=== PATIENT | male | born 1945 | race Caucasian/White ===

== ENCOUNTER 2019-08-28 05:36 | Outpatient (CLI) | payer MEDICARE ==
[~2019-08-28] VITALS: Ht 180 cm; Wt 79.5 kg
== END 2019-08-28 12:15 | disposition home or self-care (01) ==
LOC: PREOP 05:36
PROVIDERS: ATTEND Internal Medicine
DX: Z01.818 Encounter for other preprocedural examination (principal)

== ENCOUNTER 2019-08-29 07:51 | Inpatient (IN) | payer MEDICARE ==
[2019-08-29] VITALS (21 sets, daily range): BP systolic 110–144; BP diastolic 56–87
[~2019-08-29] VITALS: Ht 180 cm; Wt 79.5 kg
--- NOTE | 2019-08-29 06:13 | HISTORY AND PHYSICAL ---
DATE OF SERVICE: 08/29/2019 COLONOSCOPY HISTORY AND PHYSICAL HISTORY OF PRESENT ILLNESS: The patient is a 74-year-old white male who came in to the office on 08/27/2019 voicing complaints of fatigue over the past month with bowel habit change. He has had intermittent mucus without blood and loose stools. He has had no antibiotic exposure. He had been taking some Prilosec secondary to some intermittent heartburn symptoms, but has had no melena. Denies dysphagia. He has had some lower intestinal intermittent mild cramping. No epigastric right or left upper quadrant symptoms. He does have a distant past history of cholecystectomy. I had tried to talk him into a screening colonoscopy last year, but he did not follow through examination was encouraged. He is not aware of any family history for GI tract malignancy. PHYSICAL EXAMINATION: GENERAL: Reveals a white male, anxious, but did not appear to be in acute distress. VITAL SIGNS: Weight was down 2.6 pounds from 2 months ago. Blood pressure 106/72. CHEST: Clear to auscultation. CARDIOVASCULAR: Revealed a regular rate and rhythm without murmur, S3 or S4. ABDOMEN: Soft, supple without mass, organomegaly or tenderness. No bruits were noted. Bowel sounds are unremarkable. ASSESSMENT AND PLAN: After discussion, the patient was now ready to consent to his first screening colonoscopy. Suspect that symptoms may be proton pump inhibitor related, but cannot rule out more significant causes. Prep instructions with the Suprep kit were given and questions were answered. A flu shot was administered as well. The patient was set up for 08/29/2019. Job ID: [id number] DocumentID: [id number] Dictated Date: 08/27/2019 17:29:55 Loan Representative Date: 08/27/2019 17:42:39 Dictated By: LEAH MURPHY MD
--- NOTE | 2019-08-29 08:09 | Pre-Op Note & Conscious Sedat ---
Pre-Operative Progress Note H&P Reviewed The H&P was reviewed, patient examined and no changes noted. Date H&P Reviewed: Aug 29, 2019 Time H&P Reviewed: 08:09 Conscious Sedation Pre-Proced ASA Score 2 For ASA 3 and 4: Consider anesthesia and medical clearance. Also, for patients with a history of failed moderate sedation consider anesthesia. Airway Lungs Heart ASA score ASA 1: a normal healthy patient ASA 2: a patient with a mild systemic disease (mid diabetes, controlled hypertension, obesity ASA 3: a patient with a severe systemic disease that limits activity (angina, COPD, prior Myocardial infarction) ASA 4: a patient with an incapacitating disease that is a constant threat to life (CHF, renal failure) ASA 5: a moribund patient not expected to survive 24 hrs. (ruptured aneurysm) ASA 6: a declared brain- patient whose organs are being harvested. For emergent operations, add the letter E after the classification Mallampati Classification Grade 2 Sedation Plan Analgesia, Amnesia, Plan communicated to team members, Discussed options with patient/fam, Discussed risks with patient/fam The patient is an appropriate candidate to undergo the planned procedure, sedation, and anesthesia. The patient immediately re-assessed prior to indication. LEAH MURPHY MD Aug 29, 2019 08:09
[2019-08-29] MEDS ORDERED: D5 LR IV SOLUTION 1,000 ML IV ONE (08:22)
[2019-08-29] MEDS ORDERED: D5 LR IV SOLUTION 1,000 ML IV STA (08:26)
[2019-08-29] MEDS ORDERED: LIDOCAINE JELLY 2% 6 ML SYRINGE MM PRN (08:30)
[2019-08-29] MEDS ORDERED: MIDAZOLAM 5 MG/5 ML (VERSED) VIAL IV PRN (08:30)
[2019-08-29] MEDS ORDERED: fentaNYL INJECTION 100 MCG/2 ML AMP IVP ONE (08:30)
[2019-08-29] MEDS ORDERED: MIDAZOLAM 5 MG/5 ML (VERSED) VIAL ONE (09:46)
[2019-08-29] MEDS ORDERED: LIDOCAINE JELLY 2% 6 ML SYRINGE ONE (09:46)
[2019-08-29] MEDS ORDERED: fentaNYL INJECTION 100 MCG/2 ML AMP ONE ×2 (09:47→13:02)
--- NOTE | 2019-08-29 12:02 | History & Physical-Surgical ---
[facility] 08/29/19 1202: History of Present Illness History of Present Illness Reason for visit/HPI Mass on Colonoscopy Patient presented to Dr. Salmeron's office on 08.27.19 for changes in bowel habits. Patient has always had Constipation, but since April, his constipation had become worse and he began to notice mucus in his stools. He has never had any abdominal pain with these Bowel movements. Nothing makes it worse, but the Bowel prep for the colonoscopy made his constipation better. During a Colonoscopy on 08.29.[address] Salmeron, a near obstructing colon mass was seen to be occluding a major portion of the intestinal lumen. Date of Admission Time Seen by a Provider: 11:50 I consulted on this patient on 08/29/19 11:56 Attending Physician Leonidas Salmeron MD Admitting Physician Leonidas Salmeron MD Consult Allergies and Home Medications Allergies Coded Allergies: No Known Drug Allergies (Unverified , 08/28/19) Home Medications No Active Prescriptions or Reported Meds Past Qrclurt-Reqdnp-Mngbom Hx Patient Social History Alcohol Use: Rarely Uses Number of Drinks Today: 0 Recreational Drug Use: No Smoking Status: Never a Smoker 2nd Hand Smoke Exposure: No Recent Foreign Travel: No Contact w/Someone Who Travel: No Recent Infectious Disease Expo: No Recent Hopitalizations: No Immunizations Up To Date Date of Pneumonia Vaccine: Aug 09, 2015 Date of Influenza Vaccine: Aug 11, 2019 Seasonal Allergies Seasonal Allergies: No Surgeries History of Surgeries: Yes (SPLEENECTOMY) Surgeries: Gallbladder Respiratory History of Respiratory Disorde: No Cardiovascular History of Cardiac Disorders: No Neurological History of Neurological Disord: No Reproductive System Sexually Transmitted Disease: No HIV/AIDS: No Genitourinary History of Genitourinary Disor: No Gastrointestinal History of Gastrointestinal Di: No Musculoskeletal History of Musculoskeletal Dis: No Endocrine History of Endocrine Disorders: No HEENT History of HEENT Disorders: No Loss of Vision: Denies Hearing Impairment: Denies Cancer History of Cancer: No Psychosocial History of Psychiatric Problem: No Integumentary History of Skin or Integumenta: No Blood Transfusions History of Blood Disorders: No Adverse Reaction to a Blood Tr: No (N/A) Review of Systems Constitutional: No chills, No dizziness, No fever, No weight gain, No weight loss EENTM: No blurred vision, No double vision Respiratory: No cough, No short of breath Cardiovascular: No chest pain, No edema Gastrointestinal: No abdominal pain; constipation; No nausea, No vomiting Genitourinary: No hesitancy, No pain Musculoskeletal: No joint swelling, No muscle cramps Skin: No change in color, No pruritus Psychiatric/Neurological: Denies Emotional Problems, Denies Weakness No history of bruising and bleeding Physical Exam Vital Signs Vital Signs - First Documented 08/29/19 08/29/19 08/29/19 07:59 08:25 10:00 Temp 36.7 Pulse 63 Resp 18 B/P (MAP) 134/84 (101) Pulse Ox 97 O2 Delivery Room Air O2 Flow Rate 2 Capillary Refill : Height, Weight, BMI Height: '" Weight: lbs. oz. kg; 24.53 BMI Method: STARR MENDOZA DO 08/29/19 1254: History of Present Illness History of Present Illness Reason for visit/HPI Surgery asked to consult regarding near obstructing colon lesion. Pt seen down in Endoscopy, he had just had colonoscopy performed by Dr. Salmeron. Unfortunately a near obstructing lesion was found about 20cm from anal verge. Dr. Salmeron was able to tattoo the area. Pt had never had a colonoscopy prior to this. Pt denied any other associated signs or symptoms and no modifying factors. Time Seen by a Provider: 11:50 Allergies and Home Medications Allergies Coded Allergies: No Known Drug Allergies (Unverified , 08/28/19) Home Medications No Active Prescriptions or Reported Meds Patient Home Medication List Home Medication List Reviewed: Yes Past Wcyaclz-Faeonl-Urepcx Hx Surgeries History of Surgeries: Yes (Splenectomy) Respiratory History of Respiratory Disorde: No Cardiovascular History of Cardiac Disorders: No Neurological History of Neurological Disord: No Genitourinary History of Genitourinary Disor: No Gastrointestinal History of Gastrointestinal Di: No Musculoskeletal History of Musculoskeletal Dis: No Endocrine History of Endocrine Disorders: No HEENT History of HEENT Disorders: No Loss of Vision: Denies Cancer History of Cancer: No Psychosocial History of Psychiatric Problem: No Integumentary History of Skin or Integumenta: No Family Medical History Significant Family History: Cancer (Father got colon cancer at age 83) Review of Systems Genitourinary: No dysuria, No hematuria No history of abnormal bruising or bleeding Physical Exam General Appearance: No Apparent Distress, WD/WN Eyes: Bilateral Eye PERRL, Bilateral Eye EOMI HEENT: Pharynx Normal; No Scleral Icterus (L), No Scleral Icterus (R) Neck: Full Range of Motion, Normal Inspection, Non Tender, Supple Respiratory: Chest Non Tender, Lungs Clear, Normal Breath Sounds, No Accessory Muscle Use, No Respiratory Distress Cardiovascular: Regular Rate, Rhythm, No Murmur Gastrointestinal: Normal Bowel Sounds, No Organomegaly, No Pulsatile Mass, Non Tender, Soft Rectal: Deferred Back: No CVA Tenderness, No Vertebral Tenderness Extremity: Normal Capillary Refill, Normal Inspection, Normal Range of Motion, Non Tender, No Calf Tenderness, No Pedal Edema Neurologic/Psychiatric: Alert, Oriented x3, No Motor/Sensory Deficits, Normal Mood/Affect, skating rink ice maker II-XII Norm as Tested Skin: Normal Color, Warm/Dry Lymphatic: No Adenopathy (neck, axilla or groin) Assessment/Plan Assessment/Plan Admission Diagonsis Near obstructing Colon Lesion Admission Status: Inpatient Order (span 2 midnights) Reason for Inpatient Admission: Pt will need colon resection and post op course should take 2-3 days. Assessment/Plan Near Obstructing Colon Lesion Pt had a mass seen on colonoscopy and had to use a very small scope to get by. He has been having increasing constipation problems and this is probably why. He is NPO and has done a colon prep for the colonoscopy. Biopsies were obtained, but since he is prepped and will need a colon resection; pt is asking if it can be done today. I spoke with pt, his and Dr. Salmeron and I believe doing the surgery now is probably the best option. We will attempt a Laparscopic Hand assisted Left Colon resection, possible open. Hopefully he will only be in the hospital for 2 or 3 days. Discussed risks and complications; not limited to pain, bleeding, infection, scar, damage to bowel and need for further procedure. All questions answered to pt's and his 's satisfaction. We will schedule the surgery for today. He will need a dose of ABX prior to OR. We will send all tissue to pathology and hopefully have a cleared picture of what is going on. Supervisory-Addendum Brief Verification & Attestation Participated in pt care: history, MDM, physical Personally performed: exam, history, MDM Care discussed with: Medical Student Procedures: n/a Verification and Attestation of Medical Student E/M Service A medical student performed and documented this service in my presence. I reviewed and verified all information documented by the medical student and made modifications to such information, when appropriate. I personally performed the physical exam and medical decision making. Starr Mendoza, Aug 29, 2019,13:02 SARA HORTON Aug 29, 2019 12:02 STARR MENDOZA DO Aug 29, 2019 12:54
[2019-08-29 12:13] LABS: BASOPHILS # (AUTO) 0.1 10^3/uL (0.0-0.1); BASOPHILS % (AUTO) 1 % (0-10); EOSINOPHILS # (AUTO) 0.4 10^3/uL (0.0-0.3); EOSINOPHILS % (AUTO) 6 % (0-10); HEMATOCRIT 42 % (40-54); HEMOGLOBIN 14.1 G/DL (13.3-17.7); LYMPHOCYTES # (AUTO) 2.1 X 10^3 (1.0-4.0); LYMPHOCYTES % (AUTO) 32 % (12-44); MEAN CORPUSCULAR HEMOGLOBIN 29 PG (25-34); MEAN CORPUSCULAR HGB CONC 33 G/DL (32-36); MEAN CORPUSCULAR VOLUME 88 FL (80-99); MEAN PLATELET VOLUME 10.6 FL (7.4-10.4); MONOCYTES # (AUTO) 0.7 X 10^3 (0.0-1.0); MONOCYTES % (AUTO) 10 % (0-12); NEUTROPHILS # (AUTO) 3.4 X 10^3 (1.8-7.8); NEUTROPHILS % (AUTO) 51 % (42-75); PLATELET COUNT 235 10^3/uL (130-400); RED CELL DISTRIBUTION WIDTH 15.2 % (10.0-14.5); WHITE BLOOD COUNT 6.7 10^3/uL (4.3-11.0)
[2019-08-29 12:18] LABS: INR 1.1 (0.8-1.4); PROTHROMBIN TIME PATIENT 14.8 SEC (12.2-14.7)
[2019-08-29 12:28] LABS: ALANINE AMINOTRANSFERASE 18 U/L (0-55); ALBUMIN 4.1 GM/DL (3.2-4.5); ALKALINE PHOSPHATASE 97 U/L (40-136); BILIRUBIN,TOTAL 0.9 MG/DL (0.1-1.0); BUN/CREATININE RATIO 15; CALCIUM 8.7 MG/DL (8.5-10.1); CARBON DIOXIDE 24 MMOL/L (21-32); CHLORIDE 105 MMOL/L (98-107); CREATININE SERUM 0.94 MG/DL (0.60-1.30); GFR ESTIMATED > 60; GLUCOSE 90 MG/DL (70-105); POTASSIUM 4.8 MMOL/L (3.6-5.0); SODIUM 138 MMOL/L (135-145); TOTAL PROTEIN 7.1 GM/DL (6.4-8.2)
[2019-08-29] MEDS ORDERED: IOHEXOL 350 MG/ML 100 ML (OMNIPAQUE 350) VIAL IV ONE (13:00)
[2019-08-29] MEDS ORDERED: CATHETER FLUSH 10 ML SYR IV PRN (13:00)
[2019-08-29] MEDS ORDERED: NS 100 ML (IVPB) BAG IV ONE (13:00)
[2019-08-29] MEDS ORDERED: HOLD METFORMIN - RECEIVED CONTRAST 20 ML VIAL IV SCH (13:00)
[2019-08-29] MEDS ORDERED: proPOfol 200 MG/20 ML (DIPRIVAN) VIAL IV ONE (13:02)
[2019-08-29] MEDS ORDERED: LIDOCAINE PF 2% 5 ML (XYLOCAINE) VIAL ONE (13:02)
[2019-08-29] MEDS ORDERED: ONDANSETRON 4 MG/2 ML (SDV) Z0FRAN ONE ×2 (13:02→16:30)
[2019-08-29] MEDS ORDERED: DEXAMETHASONE 10 MG/ML (DECADRON) 1 ML VIAL ONE (13:02)
[2019-08-29] MEDS ORDERED: SEVOFLURANE (ULTANE) 15 ML INHAL SOLN ONE ×9 (13:02→16:54)
[2019-08-29] MEDS ORDERED: ROCURONIUM 10 MG/ML 5 ML SYRINGE IV ONE ×2 (13:02→15:38)
[2019-08-29] MEDS ORDERED: BUPIVACAINE 0.25% 30 ML (SENSORCAINE) VIAL ONE ×2 (13:08)
[2019-08-29] MEDS ORDERED: LACTATED RINGERS 1,000 ML IV ONE (13:12)
[2019-08-29] MEDS ORDERED: metroNIDAZOLE 500MG/100ML IVPB 100 ML IV ONE (13:15)
[2019-08-29] MEDS ORDERED: ceFAZolin 2 GM IV Premixed 50 ML ONE (13:15)
[2019-08-29] MEDS ORDERED: metroNIDAZOLE 500MG/100ML IVPB 100 ML ONE (13:15)
[2019-08-29] MEDS ORDERED: ceFAZolin 2 GM IV Premixed 50 ML IV ONE (13:15)
[2019-08-29] MEDS: LACTATED RINGERS 1,000 ML IV PRN ×2 (13:25→14:25)
[2019-08-29] MEDS ORDERED: BUP/EPI 0.5% 1:200,000 (SENSORCAINE) 30 ML VIAL ONE (13:25)
--- NOTE | 2019-08-29 13:42 | Diagnostic Imaging Report ---
PROCEDURE: CT of the abdomen with and without contrast and CT of the pelvis with contrast. TECHNIQUE: Precontrast acquisitions were acquired through the abdomen. Multiple contiguous axial images were obtained through the abdomen and pelvis after administration of intravenous contrast. Auto Exposure Controls were utilized during the CT exam to meet ALARA standards for radiation dose reduction. INDICATION: Colon cancer. COMPARISON: No prior studies are available for comparison. FINDINGS: The lung bases are clear. No discrete liver mass is identified. Gallbladder appears to be surgically absent. No biliary ductal dilatation is seen. The pancreas and spleen are unremarkable. No adrenal mass is detected. Kidneys are unremarkable. There is no hydronephrosis. The aorta is non-aneurysmal. There is a slightly prominent lymph node in the central retroperitoneum at the level of the proximal left common iliac artery measuring 12 mm. There are some shotty lymph nodes in the central retroperitoneum. A second lymph node just inferior to this and near the left common iliac measures 16 mm and shows some central low density which may indicate partial necrosis. There appear to be additional smaller mesenteric nodes present. There is marked circumferential wall thickening involving a segment of the sigmoid colon consistent with patient's known sigmoid neoplasm. There is adjacent soft tissue nodularity present, likely representing enlarged lymph nodes. A conglomerate of soft tissue measures approximately 3.9 x 3.3 cm. No inguinal lymphadenopathy is seen. Pelvic sidewalls are unremarkable. Prostate is markedly enlarged. Bladder is unremarkable. There is no free fluid or fluid collection. Appendix is unremarkable. IMPRESSION: 1. Sigmoid mass consistent with the known neoplasm. There are numerous enlarged lymph nodes in the central retroperitoneum as well as in the iliac location and in deep midline of the pelvis concerning for metastatic disease. No bowel obstruction is seen. No liver masses are detected. 2. Prostatomegaly. Dictated by: Dictated on workstation # [id number]
[2019-08-29] MEDS ORDERED: PHENYLEPHRINE 100 MCG/ML 10 ML (ANESTHESIA) SYR ONE (14:14)
[2019-08-29] MEDS ORDERED: HYDROmorphone 2 MG/ML VIAL (DILAUDID) ONE ×2 (14:38→16:30)
[2019-08-29] MEDS ORDERED: GLYCOPYRROLATE 0.2 MG/ML (ROBINUL) 2 ML VIAL ONE (15:48)
[2019-08-29] MEDS ORDERED: NEOSTIGMINE 3 MG/3 ML VIAL ONE (15:48)
[2019-08-29] MEDS ORDERED: morphine INJ 10 MG/ML 1ML (SYR OR VIAL) ONE (16:29)
[2019-08-29] MEDS ORDERED: ONDANSETRON 4 MG/2 ML (SDV) Z0FRAN IVP PRN ×2 (16:30→17:00)
[2019-08-29] MEDS ORDERED: morphine INJ 10 MG/ML 1ML (SYR OR VIAL) IVP ONE (16:30)
[2019-08-29] MEDS ORDERED: HYDROmorphone 2 MG/ML VIAL (DILAUDID) IV ONE (16:30)
--- NOTE | 2019-08-29 17:07 | Progress Note-Post Operative ---
Post-Operative Progess Note Surgeon (s)/Loaf Counter (s) Surgeon STARR PAGAN DO Loaf Counter: Cyndi Pre-Operative Diagnosis Near Obstructing Colon lesion Post-Operative Diagnosis same pending pathology Jennifer-aortic LN Procedure & Operative Findings Date of Procedure 08/29/19 Procedure Performed/Findings Lap hand asst LAR Jennifer-Aortic LN resection Anesthesia Type GET Estimated Blood Loss Estimated blood loss (mL): appx 50ml Specimens/Packing Specimens Removed Rectal/Sigmoid Colon Jennifer-aortic LN STARR PAGAN DO Aug 29, 2019 17:07
--- NOTE | 2019-08-29 18:05 | NUR ---
CONSTANTIN FLOOD admitted to room 433-1, on 08/29/19 from via bed, accompanied by staff.CONSTANTIN FLOOD introduced to surroundings, call light, bed controls, phone, TV, temperature control, lights, meal times, smoking policy, visitor policy, side rail policy, bathrooms and showers. Patient Rights given to patient in the handbook. CONSTANTIN FLOOD verbalizes understanding that [facility] is not responsible for the loss or damage to any personal effects or valuables that are kept in the patients posession during their hospitalization. The following Patient Care Plans were discussed with the pt: Discharge Planning. CONSTANTIN FLOOD verbalizes understanding of Interdisciplinary Patient Education. Patient and/or family were informed about the Rapid Response Team and its purpose.
[2019-08-29] MEDS: LACTATED RINGERS 1,000 ML IV SCH ×2 (18:18→21:50)
[2019-08-29] MEDS: ENOXAPARIN 30 MG/0.3 ML (LOVENOX) SYR SC SCH (19:14)
[2019-08-29] MEDS: KETOROLAC 30 MG/ML VIAL IVP SCH (19:15)
[2019-08-29] MEDS: ACETAMINOPHEN 500 MG TAB (TYLENOL) PO SCH (19:15)
--- NOTE | 2019-08-29 20:09 | OPERATIVE REPORT ---
DATE OF SERVICE: COLONOSCOPY SUMMARY INDICATION FOR THE PROCEDURE: Screening colonoscopy. DESCRIPTION OF PROCEDURE: The patient was placed in the left lateral decubitus position. Prior to undergoing colonoscopy, digital rectal evaluation was performed. Anal sphincter tone was normal and the perianal reflex was intact. Prostate was mildly enlarged, anodular and nontender to digital inspection. No abnormalities to digital inspection of the anal canal or distal rectal vault. The colonoscope was then inserted into the rectum and with the regular colonoscope, I was only able to advance to 20 cm from the anal verge due to an annular friable hard mass involving the entire circumference of the colon leading to an apple core type lesion. An opening was visualized, but too big for the colonoscope to traverse. The colonoscope was removed and with EGD scope, I was able to get past the lesion and visualize the remainder of the colon to the mid ascending colon. The proximal ascending colon and cecum were not visualized due to lack of scope length. Careful inspection was made as the colonoscope was withdrawn. The quality of the prep was good. At the proximal border of the annular mass tattooing with Edith ink was performed via sclerotherapy needle injecting 1 mL in 4 quadrants. Multiple biopsies were obtained and submitted for histopathology. ASSESSMENT AND PLAN: An annular mass was noted in the distal sigmoid colon 20 cm from the anal verge. The more distant photograph of the lesion was taken from the rectosigmoid junction. There is impending obstruction. Considering this and after discussion with the patient, he was amenable to admission for colonic resection to alleviate impending bowel obstruction. A CEA level, CMP and CBC were obtained and the patient was set up for surveillance CT scanning of the abdomen and pelvis with contrast. The case was discussed with Dr. Mendoza who is admitting the patient for resection later today. He has no medical contraindications to proceeding with planned colonoscopy. He has no history of cardiac or pulmonary disease. His chest was clear. CV revealed a regular rate and rhythm without murmur, S3 or S4. He denied chest pain, dyspnea on exertion or shortness of breath. If he is resectable for cure, we will plan colonoscopy in several months to complete visualization of the ascending colon and cecum. Job ID: [id number] DocumentID: [id number] Dictated Date: 08/29/2019 16:01:45 Cupola Melting Supervisor Date: 08/29/2019 20:08:45 Dictated By: LEAH MURPHY MD
--- NOTE | 2019-08-29 20:34 | OPERATIVE REPORT ---
DATE OF SERVICE: 08/29/2019 PREOPERATIVE DIAGNOSIS: Near obstructing colon lesion. POSTOPERATIVE DIAGNOSIS: Near obstructing colon lesion, pending pathology. PROCEDURES: 1. Laparoscopic hand assisted low anterior resection with primary anastomosis. 2. Excision of periaortic lymph node. SURGEON: Tay Mendoza DO RAW STOCK MACHINE LOADER: Gavin Hanna DO ANESTHESIA: General endotracheal tube. SPECIMEN: 1. Proximal rectum and distal sigmoid. 2. Periaortic lymph nodes. BLOOD LOSS: 50 mL. URINE OUTPUT: 350. INDICATION FOR PROCEDURE: The patient is a 74-year-old male, who had a colonoscopy done today by Dr. Salmeron. He had a near obstructing lesion and needed to get this part of the colon removed. FINDINGS: The patient had a near obstructing colon lesion. It was low, had to get below, it and go through the peritoneum to get into the low rectum, did a mesorectal excision and when taken off the colon, felt some periaortic lymph nodes and removed these as well. PROCEDURE NOTE: After informed consent was obtained, the patient was brought to the operating room, placed on the table in supine position. He was sterilely prepped and draped in normal fashion. An incision was made from just above the umbilicus to below the umbilicus with a #10 blade, carried down to skin into subcutaneous tissue, then deepened down to subcutaneous tissue with Bovie electrocautery down to the fascia. Fascia incised with Bovie electrocautery, bluntly entered the abdomen. There were some adhesions to the left, so went to the right and able to get into the right and extended the incision superiorly and inferiorly with Bovie electrocautery, then started taking the adhesions down with blunt dissection, then using sharp dissection with Metzenbaum scissors, taking these adhesions down to get these off to get the intestine off the abdominal wall. Encountered an old metal wire, removed some of this. This was from his previous incision. Once we have gotten this all freed up, then placed the wound protector and then placed the Gelport over this and then placed the camera through the GelPort and then placed a 12 mm VersaStep port in the right lower quadrant, placed one just above this 5 mm and then a 5 mm on the left. At this point, then put my hand in, could feel this large mass and could see the tattooing, started going along the mesentery in the sigmoid area and then coming down and then going down through the peritoneal reflection to go down below the rectum to get below this mass, using the Bovie electrocautery spatula on either side to score through here and then going down along the sacrum to do a mesorectal excision, getting this freed up and then able to free up the rectum, then got directly under the rectum and placed an Endo-JERED 60 into the pelvis, clamped across, clamped and fired transecting, did not go all the way across, so pulled this out, put a 40 mm stapler in, able to get the rest of the rectum and then coming through the mesorectum with the LigaSure, clamping, coagulating and transecting, taking this off and then coming up to the mesentery, up above the sacral promontory, then coming across this to free this up, then freed up along the left pericolic gutter to free this up. Once we had a good length, and then removed the port and pulled the colon up through this incision, felt another large mass, felt like it was metastatic lymph nodes, got under the colon and through the mesentery proximal to the lesion with Bovie electrocautery and then placed a pursestring applicator, clamped and then cut up and then used a bowel clamp and then cut below the bowel clamp, cut above the pursestring applicator to remove this and then started dissecting down the mesentery with the LigaSure going down to the base and going under this large metastatic node, then felt another node even deeper. We were able to remove this. It felt like a periaortic lymph node right along the left colic artery, dissecting down carefully, moving everything out of the way. Finally, able to remove this gently with Bovie electrocautery as well as LigaSure. Once this was removed, I then placed an anvil into the proximal portion of the descending and colon, tied this in place. I then went down below. Dr. Hanna stayed above and I cannulated the rectum with a 25, then 28 and 31 rectal dilator, could see this coming in, then able to get the sigmoid and descending colon down into the pelvis. I went with and placed a [address] to the end of the rectum, it was about 10 cm in and then advanced the trocar through the rectum, attached the anvil to the trocar and then tying it down, so it was in the green line, held for 30 seconds, then clamped and fired, held for 20 seconds and then turned two full turns and then able to gently remove the stapler. Two good donuts seen and then placed saline in the pelvis. Dr. Hanna held the colon and then I used a rigid sigmoidoscope to go through and insufflate. Good insufflation, no leak, removed this area and removed the sigmoidoscope, suctioned this out. At this point, then elected to close the midline incision, closing with a #1 double stranded PDS suture running from superior portion to inferior portion tying to itself, placed the scope back in to look at the midline, looked good. Pelvis looked good. The patient had been slightly Trendelenburg. He was then taken out of Trendelenburg. Removed all ports and allowed the pneumoperitoneum to escape, then closed the incisions with gerardo. Area was cleaned and dried, dressing was placed. The patient tolerated the procedure. Sponge, instrument and needle counts were correct at the end of the case. Job ID: [id number] DocumentID: [id number] Dictated Date: 08/29/2019 16:46:19 Tank Farm Gauger Date: 08/29/2019 20:33:43 Dictated By: DO SOTO BUI
[2019-08-29] MEDS: metroNIDAZOLE 500MG/100ML IVPB 100 ML IV SCH (21:50)
[2019-08-29] MEDS: ceFAZolin INJECTION 1,000 MG in WATER (STERILE) FOR INJECTION 10 ML IV SCH (21:50)
[2019-08-30 00:40] VITALS: BP 134/66
[2019-08-30] MEDS: KETOROLAC 30 MG/ML VIAL IVP SCH ×4 (01:08→17:11)
[2019-08-30] MEDS: ACETAMINOPHEN 500 MG TAB (TYLENOL) PO SCH ×3 (01:56→17:11)
[2019-08-30 04:55] VITALS: BP 118/65
[2019-08-30] MEDS: metroNIDAZOLE 500MG/100ML IVPB 100 ML IV SCH (05:59)
[2019-08-30] MEDS: ceFAZolin INJECTION 1,000 MG in WATER (STERILE) FOR INJECTION 10 ML IV SCH (05:59)
[2019-08-30 07:52] VITALS: BP 102/56
--- NOTE | 2019-08-30 08:15 | NUR ---
PRIOR TO A.M. MEDICATIONS PULSE WAS 64 B/P WAS 102/56
[2019-08-30] MEDS: LACTATED RINGERS 1,000 ML IV SCH ×2 (09:42→11:34)
[2019-08-30] MEDS: PANTOPRAZOLE 40 MG (PROTONIX) VIAL IVP SCH (09:42)
[2019-08-30 11:29] VITALS: BP 113/65
--- NOTE | 2019-08-30 11:30 | Anesthesia-General Post-Op ---
General Patient Condition Mental Status/LOC: Same as Preop Cardiovascular: Satisfactory Nausea/Vomiting: Absent Respiratory: Satisfactory Pain: Controlled Complications: Absent Post Op Complications Complications None Follow Up Care/Instructions Patient Instructions None needed. Anesthesia/Patient Condition Patient Condition Patient is doing well, no complaints, stable vital signs, no apparent adverse anesthesia problems. No complications reported per nursing. SARAHY STEPHEN CRNA Aug 30, 2019 11:30
--- NOTE | 2019-08-30 11:54 | Progress Note ---
Subjective Date Seen by a Provider: Aug 30, 2019 Time Seen by a Provider: 10:15 Subjective/Events-last exam Patient seen with Dr. Vicente. Patient reports doing well. Denies any abdominal pain. No N/V. No fever/chills. Passing flatus. Ambulating and tolerating clear liquid diet. Objective Exam Vital Signs Date Time Temp Pulse Resp B/P (MAP) Pulse Ox O2 Delivery O2 Flow Rate FiO2 08/30/19 11:29 37.0 54 20 113/65 (81) 97 Room Air 08/30/19 09:31 Room Air 08/30/19 09:00 96 Room Air 2.00 08/30/19 07:52 37.2 64 16 102/56 (71) 96 Room Air 08/30/19 04:55 36.8 67 20 118/65 (82) 96 Room Air 08/30/19 00:40 37.0 74 19 134/66 (88) 97 Room Air 08/29/19 21:03 97 Room Air 08/29/19 20:55 36.9 92 18 122/70 (87) 96 Room Air 08/29/19 18:05 Room Air 3 08/29/19 18:05 35.6 83 18 144/87 (106) 99 Nasal Cannula 2.00 08/29/19 18:05 36.4 20 138/71 (93) 99 Nasal Cannula 3 08/29/19 18:00 20 138/70 (92) 99 Nasal Cannula 3 08/29/19 18:00 Room Air 3 08/29/19 17:50 20 138/71 (93) 99 Nasal Cannula 3 08/29/19 17:45 Room Air 3 08/29/19 17:40 20 135/70 (91) 100 Nasal Cannula 3 08/29/19 17:30 OxyMask 4 08/29/19 17:30 20 135/70 (91) 99 OxyMask 5 08/29/19 17:20 20 118/72 (87) 100 OxyMask 6 08/29/19 17:15 OxyMask 6 08/29/19 17:08 OxyMask 6 08/29/19 17:08 36.5 20 135/68 (90) 100 OxyMask 6 I & O 08/30/19 07:00 Intake Total 2190 ml Output Total 1200 ml Balance 990 ml Capillary Refill : General Appearance: No Apparent Distress, WD/WN Neck: Full Range of Motion, Normal Inspection, Supple Respiratory: Lungs Clear, Normal Breath Sounds, No Accessory Muscle Use, No Respiratory Distress Cardiovascular: Regular Rate, Rhythm, No Edema Gastrointestinal: normal bowel sounds, non tender, soft Extremity: Normal Capillary Refill, Normal Inspection, Normal Range of Motion Neurologic/Psychiatric: Alert, Oriented x3 Skin: Normal Color, Warm/Dry, Other (Abdominal incisions C/D/I) Results Lab Laboratory Tests 08/29/19 11:55: White Blood Count 6.7, Red Blood Count 4.80, Hemoglobin 14.1, Hematocrit 42, Mean Corpuscular Volume 88, Mean Corpuscular Hemoglobin 29, Mean Corpuscular Hemoglobin Concent 33, Red Cell Distribution Width 15.2H, Platelet Count 235, Mean Platelet Volume 10.6H, Neutrophils (%) (Auto) 51, Lymphocytes (%) (Auto) 32, Monocytes (%) (Auto) 10, Eosinophils (%) (Auto) 6, Basophils (%) (Auto) 1, Neutrophils # (Auto) 3.4, Lymphocytes # (Auto) 2.1, Monocytes # (Auto) 0.7, Eosinophils # (Auto) 0.4H, Basophils # (Auto) 0.1, Prothrombin Time 14.8H, INR Comment 1.1, Activated Partial Thromboplast Time 29, Sodium Level 138, Potassium Level 4.8, Chloride Level 105, Carbon Dioxide Level 24, Anion Gap 9, Blood Urea Nitrogen 14, Creatinine 0.94, Estimat Glomerular Filtration Rate > 60, BUN/Creatinine Ratio 15, Glucose Level 90, Calcium Level 8.7, Corrected Calcium 8.6, Total Bilirubin 0.9, Aspartate Amino Transf (AST/SGOT) 28, Alanine Aminotransferase (ALT/SGPT) 18, Alkaline Phosphatase 97, Total Protein 7.1, Albumin 4.1, Carcinoembryonic Antigen 60.1H Assessment/Plan Assessment/Plan Assess & Plan/Chief Complaint A 74 year old male with obstructing colon mass who is S/P LAR. Continue to encourage ambulation and IS. Pain and Nausea medication as needed PUD and DVT prophylaxis. Increase diet to dys2. Clinical Quality Measures DVT/VTE Risk/Contraindication: Risk Factor Score Per Nursin RFS Level Per Nursing on Admit: 4+=Very High VIANEY DONALDSON RESIDENT ATHLETIC TRAINER Aug 30, 2019 11:54
[2019-08-30 16:55] VITALS: BP 113/67
[2019-08-30] MEDS: ENOXAPARIN 30 MG/0.3 ML (LOVENOX) SYR SC SCH (17:11)
[2019-08-30 20:00] VITALS: BP 121/70
[2019-08-31] VITALS: BP 136/71
[2019-08-31] MEDS: ACETAMINOPHEN 500 MG TAB (TYLENOL) PO SCH ×2 (00:23→08:40)
[2019-08-31] MEDS: KETOROLAC 30 MG/ML VIAL IVP SCH ×3 (00:23→11:14)
[2019-08-31 08:00] VITALS: BP 156/88
--- NOTE | 2019-08-31 08:26 | NUR ---
prior to a.m medications pulse was 82 b/p 146/88 Addendum: 08/31/19 at 0829 by TAMMI SOSA RN b/p and pulse error in documentation the actual b/p was 156/88 and hr was 60 bpm
[2019-08-31] MEDS: PANTOPRAZOLE 40 MG (PROTONIX) VIAL IVP SCH (08:40)
[2019-08-31] MEDS ORDERED: ACETAMINOPHEN 500 MG TAB (TYLENOL) PO PRN (09:31)
--- NOTE | 2019-08-31 10:42 | Progress Note ---
Subjective Date Seen by a Provider: Aug 31, 2019 Time Seen by a Provider: 09:30 Subjective/Events-last exam Patient seen with Dr. Vicente. Patient reports doing well. Tolerating diet and passing flatus. No BM yet. No fever/chills, N/V. No abdominal pain. Patient reports feels like he can go home. Objective Exam Vital Signs Date Time Temp Pulse Resp B/P (MAP) Pulse Ox O2 Delivery O2 Flow Rate FiO2 08/31/19 09:00 98 Room Air 2.00 08/31/19 08:00 36.9 60 20 156/88 (110) 98 Room Air 08/31/19 00:00 36.9 58 14 136/71 (92) 97 Room Air 08/30/19 20:45 Room Air 08/30/19 20:00 36.6 58 18 121/70 (87) 98 Room Air 08/30/19 16:55 36.8 58 18 113/67 (82) 97 Room Air 08/30/19 11:29 37.0 54 20 113/65 (81) 97 Room Air I & O 08/31/19 07:00 Intake Total 2040 ml Output Total 600 ml Balance 1440 ml Capillary Refill : General Appearance: No Apparent Distress, WD/WN Neck: Full Range of Motion, Normal Inspection, Supple Respiratory: Normal Breath Sounds, No Accessory Muscle Use, No Respiratory D istress Cardiovascular: Regular Rate, Rhythm, No Murmur Gastrointestinal: normal bowel sounds, non tender, soft Extremity: Normal Capillary Refill, Normal Inspection, Normal Range of Motion Neurologic/Psychiatric: Alert, Oriented x3 Skin: Normal Color, Warm/Dry, Other (Abdominal Incisions C/D/I.) Results Lab Microbiology 08/29/19 MRSA Screen - Final, Complete MRSA not isolated Assessment/Plan Assessment/Plan Assess & Plan/Chief Complaint A 74 year old male with obstructing colon mass who is S/P LAR. Continue to encourage ambulation and IS. Pain and Nausea medication as needed PUD and DVT prophylaxis. Increase diet to dys3. Ok to DC home. Clinical Quality Measures DVT/VTE Risk/Contraindication: Risk Factor Score Per Nursin RFS Level Per Nursing on Admit: 4+=Very High VIANEY DONALDSON APRN Aug 31, 2019 10:42
--- NOTE | 2019-08-31 10:43 | Discharge Inst-Surgical ---
D/C Lap Instructions-GILO Reconcile Patient Problems Problems Reviewed?: Yes New, Converted, or Re-Newed RX: RX on Chart Follow Up Appt in [address] Mendoza Activity as tolerated No driving for 24 hours No driving while on pain medications Incentive Spirometry use every 2 hours while awake Regular Diet Symptoms to Report: Fever over 101 degree F, Nausea/Vomiting Infection Signs and Symptoms to report: Increased redness, Foul odor of wound, Increased drainage Bathing instructions: May shower Operative Area Clean/Dry; Keep incision clean/dry If any problems/questions: Contact your physician or go to Emergency Room VIANEY DONALDSON APRN Aug 31, 2019 10:43
[2019-08-31] MEDS ORDERED: HYDR-3812 PO (10:44)
[2019-08-31 11:28] VITALS: BP 156/88
--- NOTE | 2019-09-15 11:06 | Physician Query Clarification ---
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 Please document a response in Progress Notes or Discharge Summary. 1. Agree with pathological diagnosis of Sigmoid CA with colonic lymph node metastasis. 2. No - Do not agree with pathology findings of Sigmoid CA with colonic lymph node metastasis. 3. Other, with explanation of the clinical findings. 4. Clinically undetermined, no explanation for the clinical findings. Is is appropriate for a provider to add additional documentation (addenda) to the record to explain the evaluation & care up to 30 days post-discharge. See [facility] and Patient Record Guidelines below. The [facility] Chapter Record of Care, Standard; [id number].01.03.01EP 1: "The hospital has a written policy that required timely entry of information into the medical record." According to [facility] Patient Record Guidelines, ARTICLE XXI. CORRECTIONS AND ADDENDA, Modifications (addenda amendments, corrections and retractions) should be made timely and no later than regulatory requirements for record completion (i.e. 30 days post discharge). Official coding guidelines require coders to query the physician for agreement with pathology findings that occur during the encounter. Coders are not allowed to pull information directly from the path reports. PHYSICIAN RESPONSE Pathology Report Findings: Other,explanation/clinical findings (I believe the mass was more Rectal/Sigmoid or even rectal, than sigmoid. However, I do agree with invasive colon adenocarcinoma with metastic extension into 7 of 30 lymph nodes) Please remember a lack of response to the above will prompt a phone page by CDI/Coding staff. In responding to this query, please exercise your independent professional judgment. The purpose of this communication is to more accurately reflect the complexity of your patients condition. The fact that a question is asked does not imply that any particular answer is desired or expected. Thank you for your timely response to this clarification. Requestors name: Shira THIS PHYSICIAN QUERY FORM IS A PERMANENT PART OF THE MEDICAL RECORD JESSENIA COHN Sep 15, 2019 11:06 STARR MCCLURE DO Sep 15, 2019 17:44 POS
== END 2019-08-31 13:20 | disposition home or self-care (01) | DRG 330 ==
LOC: ENDO 07:51 → 4TH 16:57
PROVIDERS: ADMIT Internal Medicine; ATTEND Internal Medicine
PROC: 0DBP0ZZ Excision of Rectum, Open Approach (ICD-10-PCS; 2019-08-29)
PROC: 07BD0ZZ Excision of Aortic Lymphatic, Open Approach (ICD-10-PCS; 2019-08-29)
PROC: 0DBN8ZX Excision of Sigmoid Colon, Via Natural or Artificial Opening Endoscopic, Diagnostic (ICD-10-PCS; 2019-08-29)
PROC: 0DBN0ZZ Excision of Sigmoid Colon, Open Approach (ICD-10-PCS; principal; 2019-08-29 09:59)
DX: C18.7 Malignant neoplasm of sigmoid colon (principal); C77.2 Secondary and unspecified malignant neoplasm of intra-abdominal lymph nodes; K59.00 Constipation, unspecified; Z90.81 Acquired absence of spleen
CPT/HCPCS: 36415; 74178; 80053; 82378; 85025; 85610; 85730; 86850; 86900; 86901; 87081; 88305; 88341; 88342; 94664

== ENCOUNTER → 2019-10-07 | Outpatient (CLI) | payer MEDICARE ==
[~2019-10-07] MED LIST: ACHD5005 PO; HYDR-3812 PO
--- NOTE | 2019-10-07 14:05 | Diagnostic Imaging Report ---
INDICATION: Colorectal carcinoma, initial staging. TECHNIQUE: The serum blood glucose level at the time of injection was 79 mg/dL. The patient was administered 13 mCi of F18 FDG intravenously in the right antecubital location and PET imaging was performed from the top of the skull to the mid thighs. Noncontrast CT was also performed for attenuation correction and anatomic correlation. COMPARISON: No prior PET study is available for comparison. Correlation is made with the prior CT of the abdomen and pelvis performed on 08/29/2019. FINDINGS: There is symmetric activity throughout the brain. The soft tissues of the neck are unremarkable. No mediastinal or hilar hypermetabolism is seen. No pulmonary parenchymal hypermetabolism is identified. Imaging through the abdomen and pelvis demonstrates physiologic activity within the GI and tracts. There are post surgical changes at the rectosigmoid junction. There is a hypermetabolic focus in the left mid abdomen below the levels of the kidneys measuring 2.7 x 1.8 cm. The SUV max is approximately 8.7. The previously noted prominent central retroperitoneal lymph nodes do not appear to be hypermetabolic. The jamil mass in the midline low pelvis on the prior CT is no longer visualized. There are no other hypermetabolic foci in the abdomen or pelvis. IMPRESSION: There are post surgical changes at the rectosigmoid junction. There appears to be a hypermetabolic jamil mass in the left mid abdomen, suspicious for metastatic disease. No other metabolic foci are identified. Dictated by: Dictated on workstation # [id number]
== END ==
LOC: RAD 09:52
PROVIDERS: ATTEND Internal Medicine Hematology & Oncology
DX: C20 Malignant neoplasm of rectum (principal)

== ENCOUNTER 2019-10-14 10:30 | Outpatient (CLI) | payer MEDICARE ==
[~2019-10-14] VITALS: Ht 180 cm; Wt 73.6 kg
[~2019-10-14 10:30] MED LIST changes: -ACHD5005 PO
[2019-10-15] MEDS ORDERED: ACHD5005 PO (16:20)
== END 2019-10-14 10:57 | disposition home or self-care (01) ==
LOC: PREOP 10:30
PROVIDERS: ATTEND Surgery
DX: Z01.818 Encounter for other preprocedural examination (principal)

== ENCOUNTER 2019-10-15 10:35 | Inpatient (IN) | payer MEDICARE ==
[2019-10-15] VITALS (13 sets, daily range): BP systolic 105–156; BP diastolic 62–94
[~2019-10-15] VITALS: Ht 180 cm; Wt 73.6 kg
[2019-10-15] MEDS ORDERED: INDOCYANINE GREEN 25 MG (ICG) VIAL IV ONE ×2 (11:02→11:30)
[2019-10-15] MEDS ORDERED: ceFAZolin 2 GM/50 ML NS 50 ML IV ONE (11:15)
[2019-10-15] MEDS: LACTATED RINGERS 1,000 ML IV PRN ×2 (11:15→13:08)
--- NOTE | 2019-10-15 11:30 | Progress Note-Pre Operative ---
Pre-Operative Progress Note H&P Reviewed The H&P was reviewed, patient examined and no changes noted. Time Seen by Provider: 11:28 Date H&P Reviewed: Oct 15, 2019 Time H&P Reviewed: 11:29 Pre-Operative Diagnosis: Intra-abdominal lymph node STARR PAGAN DO Oct 15, 2019 11:30 POS
[2019-10-15] MEDS ORDERED: BUP/EPI 0.5% 1:200,000 (SENSORCAINE) 30 ML VIAL ONE (12:21)
[2019-10-15] MEDS ORDERED: LIDOCAINE PF 2% 5 ML (XYLOCAINE) VIAL ONE (12:27)
[2019-10-15] MEDS ORDERED: fentaNYL INJECTION 100 MCG/2 ML AMP ONE (12:27)
[2019-10-15] MEDS ORDERED: SEVOFLURANE (ULTANE) 15 ML INHAL SOLN ONE ×6 (12:27→14:37)
[2019-10-15] MEDS ORDERED: proPOfol 200 MG/20 ML (DIPRIVAN) VIAL IV ONE (12:27)
[2019-10-15] MEDS ORDERED: MIDAZOLAM 2 MG/2 ML (VERSED) VIAL ONE (12:27)
[2019-10-15] MEDS ORDERED: DEXAMETHASONE 10 MG/ML (DECADRON) 1 ML VIAL ONE (12:27)
[2019-10-15] MEDS ORDERED: ONDANSETRON 4 MG/2 ML (SDV) Z0FRAN ONE (12:27)
[2019-10-15] MEDS ORDERED: ROCURONIUM 10 MG/ML 5 ML SYRINGE IV ONE ×2 (12:28→13:33)
[2019-10-15] MEDS ORDERED: HYDROmorphone 2 MG/ML VIAL (DILAUDID) ONE (13:38)
[2019-10-15] MEDS ORDERED: NEOSTIGMINE 3 MG/3 ML VIAL ONE (14:37)
[2019-10-15] MEDS ORDERED: GLYCOPYRROLATE 0.2 MG/ML (ROBINUL) 2 ML VIAL ONE (14:37)
[2019-10-15] MEDS ORDERED: BUPIVACAINE 0.5% 30 ML (SENSORCAINE) VIAL ONE (14:59)
[2019-10-15] MEDS ORDERED: morphine INJ 10 MG/ML 1ML (SYR OR VIAL) IVP ONE (15:45)
[2019-10-15] MEDS ORDERED: MEPERIDINE (DEMEROL) INJ 50 MG/ML IVP ONE (15:45)
[2019-10-15] MEDS ORDERED: fentaNYL INJECTION 100 MCG/2 ML AMP IVP ONE (15:45)
[2019-10-15] MEDS ORDERED: ONDANSETRON 4 MG/2 ML (SDV) Z0FRAN IVP PRN (15:45)
[2019-10-15] MEDS ORDERED: morphine INJ 10 MG/ML 1ML (SYR OR VIAL) ONE (15:50)
[2019-10-15] MEDS ORDERED: RT-ALBUTEROL SULF 2.5 MG/3 ML PRE-MIX VIAL ONE (15:58)
--- NOTE | 2019-10-15 16:13 | Progress Note-Post Operative ---
Post-Operative Progess Note Surgeon (s)/Section Maintainer (s) Surgeon STARR PAGAN DO Section Maintainer: Dr. Hanna Pre-Operative Diagnosis Intra-abdominal lymph node Post-Operative Diagnosis Intra-Abdominal mass x 3 ?Urachal remnant All pending pathology Procedure & Operative Findings Date of Procedure 10/15/19 Procedure Performed/Findings Diagnostic Laparoscopy with Exploratory Laparotomy and removal of 3 intra-abdominal masses VAL Anesthesia Type GET Estimated Blood Loss Estimated blood loss (mL): less than 20ml Specimens/Packing Specimens Removed 2 masses in small bowel mesetery 1 mass on small bowel mesentery possible urachal remnant STARR PAGAN DO Oct 15, 2019 16:13 POS
[2019-10-15] MEDS ORDERED: RT-ALBUTEROL SULF 2.5 MG/3 ML PRE-MIX VIAL INH ONE (16:15)
[2019-10-15] MEDS ORDERED: ACHD5005 PO (16:20)
--- NOTE | 2019-10-15 16:20 | Discharge Inst-Surgical ---
Discharge Inst-Surgical Depart Medication/Instructions New, Converted or Re-Newed RX: RX Given to Pt/Family Patient Instructions Follow up Appt: Make appointment for 2 weeks. [phone] Instructions: No lifting greater than 20 pounds. No strenuous activity. May shower in 24 hours, no tub bath or soaking. Use incentive spirometer at home as directed. No Smoking Skin/Wound Care: May remove bandages in am. You need to leave the Dermabond on incision it will fall off on it's own. Symptoms to Report: Appetite Changes, Extremity Discoloration, Numbness/Tingling, Swelling Increased, Bleeding Excessive, Eyesight Changes, Pain Increased, Urine Color Change, Constipation(Persistent), Fever over 101 degree F, Pain/Pressure in chest, Urinating Difficulty, Cough Up/Vomit Blood, Heart Beat Irreg/Pounding, Pain/Pressure in jaw, Cramps in feet or legs, Lightheadedness, Pain/Pressure in shoulder, Diarrhea(Persistent), Memory Changes Suddenly, Questions/Concerns, Weight gain consecutive days, Dizziness/Fainting, Nausea/Vomiting, Shortness of Breath, Weight gain over 2 pounds If questions or concerns contact your physician Or seek help at emergency department. Activity Activity as Tolerated: Yes Activity Instructions: Avoid Stress to Incision Driving Instructions: No Driving/Refer to Dr. Elizabeth Discharge Diet: No Restrictions Diet After 24 Hours: Clear Liquid if Nauseous If Any Problems/Questions/Issu: Contact Your Physician, Go to Emergency Room Skin/Wound Care Infection Signs and Symptoms: Increased Redness, Foul Odor of Wound, Increased Drainage, Skin Itchy or Has a Rash, Increased Swelling, Temperature Above 101 F Bathing Instructions: Shower Stitches/[place]/Dermabond Dis: Care of [place] Ice Pack: Ice On and Off Site STARR PAGAN DO Oct 15, 2019 16:20 POS
--- NOTE | 2019-10-15 16:40 | NUR ---
TO AMB SURG FROM PAR PER CART. AWAKE, BUT DROWSY. RATES MID ABD PAIN 5, DESCRIBES "LIKE A BELLY ACHE". X3 LARGE BAND-AIDS D/I OVER RIGHT MID TO LOWER RIGHT LATERAL ABD. ISLAND DRESSING INTACT TO MID ABD, SCANT AMOUNT OF LIGHT RED DRAINAGE AT CENTER OF ISLAND DRESSING, BORDERS MARKED. ICE PACK ON. PO FLUIDS PROVIDED. IBARRA CATH INTACT, BAG TO DD ON LOWER BEDRAIL, SECURED WITH CATH STRAP TO RIGHT LEG.
--- NOTE | 2019-10-15 17:10 | NUR ---
DROWSY, AWAKENS EASILY TO VOICE. RATES MID ABDOMINAL PAIN 2-3. VERY SCANT INCREASE IN RED DRAINAGE PAST MARKED BORDERS ON MID ABD ISLAND DRESSING. DENIES NAUSEA. TAKING PO FLUIDS WITHOUT PROBLEM. URINE CLEAR, LIGHT YELLOW TO CATHETER BAG. SAO2 97-98% WITH O2 AT 4L PER NC. RATE DECREASED TO 3L PER NC. PT AND FAMILY STATE THEY DO NOT FEEL LIKE HE WILL BE ABLE TO BE DISMISSED TONIGHT AND ARE REQUESTING OVERNIGHT STAY OFFERED TO THEM BY DR PAGAN.
--- NOTE | 2019-10-15 17:20 | NUR ---
CONTACTED DR PAGAN BY PHONE, INFORMED OF PT AND PT'S FAMILY'S REQUEST FOR OBSERVATION STAY.
--- NOTE | 2019-10-15 18:05 | NUR ---
TRANSPORTED TO 4TH MED/SURG PER CART TO ROOM 424 AND TRANSFERRED TO BED FROM CART WITH STAFF X3. REPORT TO Mehran NORTON RN AND CARE OF PT TRANSFERRED TO 4TH MED/SURG.
--- NOTE | 2019-10-15 18:27 | NUR ---
CONSTANTIN FLOOD admitted to room 424, with an admitting diagnosis of post op open abdominal lymph node removal, from same day ssurgical via hospital bed, accompanied by staff and family.CONSTANTIN FLOOD introduced to surroundings, call light, bed controls, phone, TV, temperature control, lights, meal times, smoking policy, visitor policy, side rail policy, bathrooms and showers. Patient Rights given to patient in the handbook. CONSTANTIN FLOOD verbalizes understanding that [facility] is not responsible for the loss or damage to any personal effects or valuables that are kept in the patients posession during their hospitalization. CONSTANTIN FLOOD verbalizes understanding of Interdisciplinary Patient Education. Patient and/or family were informed about the Rapid Response Team and its purpose.
--- NOTE | 2019-10-15 18:30 | NUR ---
report from Kerri COY. patient orientated to room, three lap sites covered with bandages, abdominal dressing dry and intact with minimum drainage
[2019-10-15] MEDS ORDERED: HYDROcodone/APAP 5 MG/325 MG (LORTAB) TAB PO PRN (23:45)
[2019-10-16] VITALS: BP 123/70
--- NOTE | 2019-10-16 01:28 | OPERATIVE REPORT ---
DATE OF SERVICE: 10/15/2019 PREOPERATIVE DIAGNOSES: Suspected intra-abdominal lymph nodes with metastasis. POSTOPERATIVE DIAGNOSES: 1. Intra-abdominal masses x3. 2. Questionable urachal remnant. All pending pathology. PROCEDURE: Diagnostic laparoscopy with exploratory laparotomy and removal of three intra-abdominal masses as well as some lysis of adhesions. SURGEON: Starr Mendoza DO. INSURANCE ACCOUNT EXECUTIVE: Gavin Hanna DO ANESTHESIA: General endotracheal tube. SPECIMEN: Two masses within the small bowel mesentery, one mass just on top of the small bowel mesentery and then a possible urachal remnant. BLOOD LOSS: Less than 20 mL. FLUIDS: Per anesthesia. POSTOPERATIVE CONDITION: Stable. INDICATION FOR PROCEDURE: The patient is a 74-year-old male who has history of colon cancer, actually low rectum and PET scan showed a mass that looked like it was in the mesentery light up suspicious for metastatic lymph node. FINDINGS: The patient had one mass in the small bowel mesentery. It felt like it may have been a lipoma, removed and sent to pathology. Another mass, I believe, was a lymph node also deep within the small bowel mesentery, which was removed and sent to pathology and then a small, firm nodule on outside of the mesentery just below the piece of small bowel removed and then a questionable urachal remnant. All sent to pathology. PROCEDURE NOTE: After informed consent was obtained, the patient was brought to the operating room, placed on the table in the supine position. He was sterilely prepped and draped in normal fashion. I started the case with the thoughts of using the da Joao robot and Firefly to have this lymph node light up so we could see and remove it, so we started with, in the left upper quadrant, made an incision with a #11 blade after first infiltrating with local, carried down through the skin into subcutaneous tissue, deepened down to subcutaneous tissue with Bovie electrocautery down to the fascia. Fascia was incised with Bovie electrocautery and bluntly entered the abdomen, swept a finger around, placed 11 mm trocar port, created pneumoperitoneum and then placed 2 more ports 10 cm away. One right about the site of the umbilicus and then one 10 cm below this using local lidocaine, 11 blade for stab incision and the 8 mm robotic ports. Then docked the robot and started looking for this lymph node that we could see on PET scan. Using Firefly lit up the small bowel, but unfortunately could not find anything lighting up in the mesentery. I spent about 20 to 30 minutes looking and at this point then elected to just open, so we went through the previous incision, carried down through the skin into subcutaneous tissue, deepened down to subcutaneous tissue with Bovie electrocautery down to the fascia. Fascia incised with Bovie electrocautery, bluntly entered the abdomen, then took down omentum that was on top of the peritoneum, carefully pushed this away the finger fracturing. The right upper quadrant incision had come through some omentum as well and was right next to the colon. This was carefully taken down. There was a piece of small bowel that was stuck at the base of the incision, carefully cut above this and cut this out, looked like it was attached to some preperitoneal fat and looked like there was a small structure looked like a urachal remnant. This was cut out after we were able to get the small bowel off of the peritoneum and we sent this to pathology. At this point, we then started looking and palpating, palpated something in the mesentery, so I was in between the mesentery of the small bowel, carefully dissected this out, able to remove this and felt like a lipoma, this was sent to pathology. Palpated around again felt another firm. We were trying to feel right around the umbilicus above the bifurcation of the aorta, this was deep in the mesentery as well. Carefully dissected the mesentery with blunt dissection as well as Bovie electrocautery, able to get out the mass. It looked like it may have been a lymph node. It actually came out in 2 pieces. This was sent. Bleeding was controlled. Palpated around again, trying to feel anything, ran the small bowel, did not see any holes, did not feel anything else. Palpated the cecum, did not feel any obvious masses, felt like there is some fecal material. On one piece of the small bowel close to the terminal ileum the very firm small, maybe 6 mm pearly white nodule. This was removed and sent to pathology. Once all this was out, again palpated, did not feel anything. Then at this point, I elected to close the incision, closing the midline incision with a #1 double stranded PDS suture running from superior portion to inferior portion tying to itself. We then created pneumoperitoneum again and looked in, did not see any other obvious pathology, did not see any problems. Liver looked okay and at this point then removed all ports under direct visualization. Closed the right upper quadrant incision, closing the fascia with 0 Vicryl [id number] sutures. Irrigated all incisions and closed the incision with gerardo. Area was cleaned and dried, dressing was placed. The patient tolerated the procedure and transferred to recovery room in stable condition. Sponge and needle count correct at the end of the case. Dr. Hanna assisted in this case helping to make incisions, close incisions, identify anatomy and hold anatomy out of the way. Job ID: [id number] DocumentID: [id number] Dictated Date: 10/15/2019 16:17:14 Hopper Feeder Date: 10/16/2019 01:27:53 Dictated By: STARR MENDOZA DO
[2019-10-16 04:00] VITALS: BP 106/52
[2019-10-16 08:00] VITALS: BP 125/66
--- NOTE | 2019-10-16 10:04 | Progress Note - Surgery ---
Subjective Time Seen by a Provider: 09:57 Subjective/Events-last exam Pt seen and examined, pain controlled, tolerating diet and obregon is out. He would like to go home. Pt was kept overnight for pain control. Review of Systems General: No Chills, No Night Sweats Pulmonary: No Dyspnea, No Cough Cardiovascular: No: Chest Pain, Palpitations Gastrointestinal: Abdominal Pain (minimal); No: Nausea, Vomiting Objective Exam Vital Signs Date Time Temp Pulse Resp B/P (MAP) Pulse Ox O2 Delivery O2 Flow Rate FiO2 10/16/19 08:00 36.6 75 16 125/66 (85) 95 Room Air 10/16/19 04:00 36.7 77 18 106/52 (70) 93 Room Air 10/16/19 00:00 37.4 118 16 123/70 (87) 92 Room Air 10/15/19 20:45 94 Room Air 10/15/19 20:00 37.6 114 16 127/71 (89) 94 Room Air 10/15/19 18:00 37.7 112 16 141/77 (98) 95 Nasal Cannula 3.00 10/15/19 17:53 36.8 93 16 143/89 97 Nasal Cannula 3.00 10/15/19 17:10 36.6 102 16 144/83 95 Nasal Cannula 3.00 10/15/19 16:40 36.4 20 142/86 (104) 96 Nasal Cannula 4 10/15/19 16:40 Nasal Cannula 4 10/15/19 16:40 36.1 95 16 149/89 98 Nasal Cannula 4.00 10/15/19 16:30 20 142/86 (104) 96 Nasal Cannula 4 10/15/19 16:30 Nasal Cannula 4 10/15/19 16:20 20 156/90 (112) 94 Nasal Cannula 3 10/15/19 16:15 Nasal Cannula 4 10/15/19 16:10 20 145/80 (101) 94 Nasal Cannula 4 10/15/19 16:00 Nasal Cannula 4 10/15/19 16:00 20 145/84 (104) 98 Nasal Cannula 4 10/15/19 15:50 20 132/78 (96) 98 OxyMask 10 10/15/19 15:45 OxyMask 10 10/15/19 15:40 20 119/68 (85) 92 OxyMask 10 10/15/19 15:31 OxyMask 10/15/19 15:31 36.6 16 105/62 (76) 92 OxyMask 10 10/15/19 10:40 36.6 71 16 153/94 (113) 98 Room Air I & O 10/16/19 07:00 Intake Total 1500 ml Output Total 1450 ml Balance 50 ml Capillary Refill : General Appearance: No Apparent Distress, WD/WN Respiratory: Lungs Clear, Normal Breath Sounds, No Accessory Muscle Use, No Respiratory Distress Cardiovascular: Regular Rate, Rhythm, No Murmur Gastrointestinal: soft, no organomegaly, tenderness (at incisions, minimal) Assessment/Plan Assessment/Plan Assessment/Plan S/P Ex Lap with exc of intra-abdominal mass x 3 D/C IV and D/C home STARR PAGAN DO Oct 16, 2019 10:04 POS
[2019-10-16 11:52] VITALS: BP 125/66
--- NOTE | 2019-10-21 14:53 | Physician Query Clarification ---
PQ-Further Specificity Admission/Discharge Admission Date: Oct 15, 2019 at 10:36 Discharge Date: Oct 16, 2019 at 13:00 The medical record reflects the following clinical scenario: History/Risk Factors: Intra-abdominal masses Clinical Findings: Path report - reactive lymphoid hyperplasia, reactive fibrous tissue and urachal remnant Treatment: removal of 2 mesenteric lymph nodes, excision mass small bowel and excision urachal remnant Question: Can you further specify the final diagnosis after study per the clinical indicators above? Please document a response in the Progress Notes or Discharge Summary. 1. reactive lymphoid hyperplasia(enlarged lymph node) 2. intra-abdominal masses not further specified. 3. Other, with explanation of the clinical findings. 4. Clinically undetermined, no explanation for the clinical findings. PHYSICIAN RESPONSE Can you specify per above: 1 Please remember a lack of response to the above will prompt a phone page by CDI/Coding staff. In responding to this query, please exercise your independent professional judgment. The purpose of this communication is to more accurately reflect the complexity of your patients condition. The fact that a question is asked does not imply that any particular answer is desired or expected. Thank you for your timely response to this clarification. Requestors name: Jessenia THIS PHYSICIAN QUERY FORM IS A PERMANENT PART OF THE MEDICAL RECORD JESSENIA COHN Oct 21, 2019 14:53 STARR PAGAN DO Oct 27, 2019 13:36
== END 2019-10-16 13:00 | disposition home or self-care (01) | DRG 804 ==
LOC: 4TH 10:35 → SDC 10:35 → UNDOADMIN 10:36 → 4TH 10:36 → EDSTATUS 13:00 → 4TH 18:06 → SDC 18:06 → 4TH 10-16 10:34 → UNDODISIN 10-16 13:00 → 4TH 10-16 13:00
PROVIDERS: ADMIT Surgery; ATTEND Surgery
PROC: 0WJG4ZZ Inspection of Peritoneal Cavity, Percutaneous Endoscopic Approach (ICD-10-PCS; 2019-10-15)
PROC: 0DB80ZX Excision of Small Intestine, Open Approach, Diagnostic (ICD-10-PCS; 2019-10-15)
PROC: 07BB0ZX Excision of Mesenteric Lymphatic, Open Approach, Diagnostic (ICD-10-PCS; principal; 2019-10-15 12:31)
DX: R59.9 Enlarged lymph nodes, unspecified (principal); K21.9 Gastro-esophageal reflux disease without esophagitis; Z85.048 Personal history of other malignant neoplasm of rectum, rectosigmoid junction, and anus; Z90.81 Acquired absence of spleen; Z53.31 Laparoscopic surgical procedure converted to open procedure; Q64.4 Malformation of urachus
CPT/HCPCS: 36430; 87081; 88305

== ENCOUNTER → 2019-12-30 | Outpatient (RCR) | payer MEDICARE ==
[2019-10-01 13:59] LABS: BASOPHILS # (AUTO) 0.1 10^3/uL (0.0-0.1); BASOPHILS % (AUTO) 1 % (0-10); EOSINOPHILS # (AUTO) 0.5 10^3/uL (0.0-0.3); EOSINOPHILS % (AUTO) 8 % (0-10); HEMATOCRIT 43 % (40-54); HEMOGLOBIN 14.2 G/DL (13.3-17.7); LYMPHOCYTES # (AUTO) 3.2 X 10^3 (1.0-4.0); LYMPHOCYTES % (AUTO) 53 % (12-44); MEAN CORPUSCULAR HEMOGLOBIN 30 PG (25-34); MEAN CORPUSCULAR HGB CONC 33 G/DL (32-36); MEAN CORPUSCULAR VOLUME 90 FL (80-99); MEAN PLATELET VOLUME 11.1 FL (7.4-10.4); MONOCYTES # (AUTO) 0.6 X 10^3 (0.0-1.0); MONOCYTES % (AUTO) 9 % (0-12); NEUTROPHILS # (AUTO) 1.7 X 10^3 (1.8-7.8); NEUTROPHILS % (AUTO) 29 % (42-75); PLATELET COUNT 177 10^3/uL (130-400); RED CELL DISTRIBUTION WIDTH 15.5 % (10.0-14.5); WHITE BLOOD COUNT 6.1 10^3/uL (4.3-11.0)
[2019-10-01 14:17] LABS: ALANINE AMINOTRANSFERASE 20 U/L (0-55); ALKALINE PHOSPHATASE 83 U/L (40-136); BILIRUBIN,TOTAL 0.6 MG/DL (0.1-1.0); BUN/CREATININE RATIO 14; CALCIUM 8.8 MG/DL (8.5-10.1); CARBON DIOXIDE 24 MMOL/L (21-32); CHLORIDE 110 MMOL/L (98-107); CREATININE SERUM 1.05 MG/DL (0.60-1.30); GFR ESTIMATED > 60; GLUCOSE 103 MG/DL (70-105); POTASSIUM 4.4 MMOL/L (3.6-5.0); SODIUM 141 MMOL/L (135-145)
[2019-11-03 13:21] LABS: BASOPHILS # (AUTO) 0.1 10^3/uL (0.0-0.1); BASOPHILS % (AUTO) 2 % (0-10); EOSINOPHILS # (AUTO) 0.5 10^3/uL (0.0-0.3); EOSINOPHILS % (AUTO) 8 % (0-10); HEMATOCRIT 43 % (40-54); HEMOGLOBIN 14.5 G/DL (13.3-17.7); LYMPHOCYTES # (AUTO) 2.9 X 10^3 (1.0-4.0); LYMPHOCYTES % (AUTO) 48 % (12-44); MEAN CORPUSCULAR HEMOGLOBIN 30 PG (25-34); MEAN CORPUSCULAR HGB CONC 34 G/DL (32-36); MEAN CORPUSCULAR VOLUME 89 FL (80-99); MONOCYTES # (AUTO) 0.5 X 10^3 (0.0-1.0); MONOCYTES % (AUTO) 8 % (0-12); NEUTROPHILS # (AUTO) 2.1 X 10^3 (1.8-7.8); NEUTROPHILS % (AUTO) 34 % (42-75); PLATELET COUNT 284 10^3/uL (130-400)
[2019-11-03 13:39] LABS: ALANINE AMINOTRANSFERASE 15 U/L (0-55); ALBUMIN 4.2 GM/DL (3.2-4.5); ALKALINE PHOSPHATASE 95 U/L (40-136); BILIRUBIN,TOTAL 0.7 MG/DL (0.1-1.0); BUN/CREATININE RATIO 13; CARBON DIOXIDE 22 MMOL/L (21-32); CHLORIDE 108 MMOL/L (98-107); CREATININE SERUM 1.02 MG/DL (0.60-1.30); GFR ESTIMATED > 60; GLUCOSE 110 MG/DL (70-105); MAGNESIUM 1.9 MG/DL (1.6-2.4); POTASSIUM 3.8 MMOL/L (3.6-5.0); SODIUM 141 MMOL/L (135-145); TOTAL PROTEIN 7.4 GM/DL (6.4-8.2)
[2019-11-19 09:30] LABS: BASOPHILS # (AUTO) 0.1 10^3/uL (0.0-0.1); BASOPHILS % (AUTO) 1 % (0-10); EOSINOPHILS # (AUTO) 0.6 10^3/uL (0.0-0.3); EOSINOPHILS % (AUTO) 18 % (0-10); HEMATOCRIT 41 % (40-54); HEMOGLOBIN 13.8 G/DL (13.3-17.7); LYMPHOCYTES # (AUTO) 0.9 X 10^3 (1.0-4.0); LYMPHOCYTES % (AUTO) 25 % (12-44); MEAN CORPUSCULAR HEMOGLOBIN 30 PG (25-34); MEAN CORPUSCULAR HGB CONC 34 G/DL (32-36); MEAN CORPUSCULAR VOLUME 89 FL (80-99); MEAN PLATELET VOLUME 11.1 FL (7.4-10.4); MONOCYTES # (AUTO) 0.3 X 10^3 (0.0-1.0); MONOCYTES % (AUTO) 9 % (0-12); NEUTROPHILS # (AUTO) 1.7 X 10^3 (1.8-7.8); NEUTROPHILS % (AUTO) 47 % (42-75); PLATELET COUNT 166 10^3/uL (130-400); WHITE BLOOD COUNT 3.7 10^3/uL (4.3-11.0)
[2019-11-19 10:00] LABS: ALANINE AMINOTRANSFERASE 11 U/L (0-55); ALBUMIN 3.7 GM/DL (3.2-4.5); ALKALINE PHOSPHATASE 81 U/L (40-136); BILIRUBIN,TOTAL 0.6 MG/DL (0.1-1.0); BUN/CREATININE RATIO 16; CALCIUM 8.7 MG/DL (8.5-10.1); CARBON DIOXIDE 26 MMOL/L (21-32); CHLORIDE 109 MMOL/L (98-107); CREATININE SERUM 1.03 MG/DL (0.60-1.30); GFR ESTIMATED > 60; GLUCOSE 120 MG/DL (70-105); POTASSIUM 3.9 MMOL/L (3.6-5.0); SODIUM 141 MMOL/L (135-145); TOTAL PROTEIN 6.5 GM/DL (6.4-8.2)
[2019-11-26 09:01] LABS: BASOPHILS # (AUTO) 0.1 10^3/uL (0.0-0.1); BASOPHILS % (AUTO) 1 % (0-10); EOSINOPHILS # (AUTO) 0.5 10^3/uL (0.0-0.3); EOSINOPHILS % (AUTO) 16 % (0-10); HEMATOCRIT 40 % (40-54); HEMOGLOBIN 13.4 G/DL (13.3-17.7); LYMPHOCYTES # (AUTO) 0.7 X 10^3 (1.0-4.0); LYMPHOCYTES % (AUTO) 20 % (12-44); MEAN CORPUSCULAR HEMOGLOBIN 30 PG (25-34); MEAN CORPUSCULAR HGB CONC 34 G/DL (32-36); MEAN CORPUSCULAR VOLUME 90 FL (80-99); MEAN PLATELET VOLUME 10.5 FL (7.4-10.4); MONOCYTES # (AUTO) 0.3 X 10^3 (0.0-1.0); MONOCYTES % (AUTO) 9 % (0-12); NEUTROPHILS # (AUTO) 1.9 X 10^3 (1.8-7.8); NEUTROPHILS % (AUTO) 54 % (42-75); PLATELET COUNT 142 10^3/uL (130-400); RED CELL DISTRIBUTION WIDTH 15.4 % (10.0-14.5); WHITE BLOOD COUNT 3.5 10^3/uL (4.3-11.0)
[2019-11-26 09:34] LABS: ALANINE AMINOTRANSFERASE 12 U/L (0-55); ALBUMIN 3.7 GM/DL (3.2-4.5); ALKALINE PHOSPHATASE 86 U/L (40-136); BILIRUBIN,TOTAL 0.4 MG/DL (0.1-1.0); BUN/CREATININE RATIO 16; CALCIUM 8.6 MG/DL (8.5-10.1); CARBON DIOXIDE 20 MMOL/L (21-32); CHLORIDE 110 MMOL/L (98-107); CREATININE SERUM 0.93 MG/DL (0.60-1.30); GFR ESTIMATED > 60; GLUCOSE 137 MG/DL (70-105); POTASSIUM 3.8 MMOL/L (3.6-5.0); SODIUM 140 MMOL/L (135-145); TOTAL PROTEIN 6.6 GM/DL (6.4-8.2)
[2019-12-08 13:03] LABS: BASOPHILS % (AUTO) 1 % (0-10); EOSINOPHILS # (AUTO) 0.5 10^3/uL (0.0-0.3); EOSINOPHILS % (AUTO) 9 % (0-10); HEMATOCRIT 39 % (40-54); HEMOGLOBIN 13.3 G/DL (13.3-17.7); LYMPHOCYTES # (AUTO) 0.5 X 10^3 (1.0-4.0); LYMPHOCYTES % (AUTO) 9 % (12-44); MEAN CORPUSCULAR HEMOGLOBIN 30 PG (25-34); MEAN CORPUSCULAR HGB CONC 34 G/DL (32-36); MEAN CORPUSCULAR VOLUME 89 FL (80-99); MEAN PLATELET VOLUME 10.4 FL (7.4-10.4); MONOCYTES # (AUTO) 0.7 X 10^3 (0.0-1.0); MONOCYTES % (AUTO) 11 % (0-12); NEUTROPHILS # (AUTO) 4.2 X 10^3 (1.8-7.8); NEUTROPHILS % (AUTO) 71 % (42-75); PLATELET COUNT 213 10^3/uL (130-400); RED CELL DISTRIBUTION WIDTH 16.6 % (10.0-14.5); WHITE BLOOD COUNT 5.9 10^3/uL (4.3-11.0)
[2019-12-08 13:19] LABS: ALANINE AMINOTRANSFERASE 12 U/L (0-55); ALBUMIN 3.6 GM/DL (3.2-4.5); ALKALINE PHOSPHATASE 85 U/L (40-136); BILIRUBIN,TOTAL 0.7 MG/DL (0.1-1.0); BUN/CREATININE RATIO 15; CALCIUM 8.4 MG/DL (8.5-10.1); CARBON DIOXIDE 25 MMOL/L (21-32); CHLORIDE 107 MMOL/L (98-107); CREATININE SERUM 0.94 MG/DL (0.60-1.30); GFR ESTIMATED > 60; GLUCOSE 101 MG/DL (70-105); POTASSIUM 3.5 MMOL/L (3.6-5.0); SODIUM 140 MMOL/L (135-145); TOTAL PROTEIN 6.2 GM/DL (6.4-8.2)
[2019-12-16 09:59] LABS: BASOPHILS % (AUTO) 0 % (0-10); EOSINOPHILS # (AUTO) 0.3 10^3/uL (0.0-0.3); EOSINOPHILS % (AUTO) 4 % (0-10); HEMATOCRIT 38 % (40-54); HEMOGLOBIN 12.9 G/DL (13.3-17.7); LYMPHOCYTES # (AUTO) 0.3 X 10^3 (1.0-4.0); LYMPHOCYTES % (AUTO) 4 % (12-44); MEAN CORPUSCULAR HEMOGLOBIN 30 PG (25-34); MEAN CORPUSCULAR HGB CONC 34 G/DL (32-36); MEAN CORPUSCULAR VOLUME 89 FL (80-99); MEAN PLATELET VOLUME 9.7 FL (7.4-10.4); MONOCYTES # (AUTO) 1.1 X 10^3 (0.0-1.0); MONOCYTES % (AUTO) 17 % (0-12); NEUTROPHILS # (AUTO) 4.8 X 10^3 (1.8-7.8); NEUTROPHILS % (AUTO) 75 % (42-75); PLATELET COUNT 251 10^3/uL (130-400); RED CELL DISTRIBUTION WIDTH 17.9 % (10.0-14.5); WHITE BLOOD COUNT 6.3 10^3/uL (4.3-11.0)
[2019-12-16 10:21] LABS: BUN/CREATININE RATIO 13; CALCIUM 8.4 MG/DL (8.5-10.1); CARBON DIOXIDE 27 MMOL/L (21-32); CHLORIDE 102 MMOL/L (98-107); CREATININE SERUM 0.83 MG/DL (0.60-1.30); GFR ESTIMATED > 60; GLUCOSE 106 MG/DL (70-105); MAGNESIUM 1.7 MG/DL (1.6-2.4); POTASSIUM 3.3 MMOL/L (3.6-5.0); SODIUM 137 MMOL/L (135-145)
[~2019-12-30] MED LIST changes: +ACHD5005 PO; +HYOS-20 PO; +MAGNESIUM SULFATE IV ONE; +NS IV 1000 ML (CANCER CTR) 1,000 ML ONE; +POTASSIUM CHL IV ONE; +SUCRALFATE 1 GM (CARAFATE) TAB PO ONE; +[UNRECOGNIZED DRUG - OTHER] IV ONE; +[UNRECOGNIZED DRUG - OTHER] IV ONE
[2019-12-30 10:40] LABS: BASOPHILS # (AUTO) 0.1 10^3/uL (0.0-0.1); BASOPHILS % (AUTO) 1 % (0-10); EOSINOPHILS # (AUTO) 0.3 10^3/uL (0.0-0.3); EOSINOPHILS % (AUTO) 5 % (0-10); HEMATOCRIT 37 % (40-54); HEMOGLOBIN 12.6 G/DL (13.3-17.7); LYMPHOCYTES # (AUTO) 0.5 X 10^3 (1.0-4.0); LYMPHOCYTES % (AUTO) 9 % (12-44); MEAN CORPUSCULAR HEMOGLOBIN 31 PG (25-34); MEAN CORPUSCULAR HGB CONC 34 G/DL (32-36); MEAN CORPUSCULAR VOLUME 91 FL (80-99); MEAN PLATELET VOLUME 9.9 FL (7.4-10.4); MONOCYTES # (AUTO) 0.6 X 10^3 (0.0-1.0); MONOCYTES % (AUTO) 11 % (0-12); NEUTROPHILS # (AUTO) 4.1 X 10^3 (1.8-7.8); NEUTROPHILS % (AUTO) 74 % (42-75); PLATELET COUNT 337 10^3/uL (130-400); RED CELL DISTRIBUTION WIDTH 17.8 % (10.0-14.5); WHITE BLOOD COUNT 5.6 10^3/uL (4.3-11.0)
[2019-12-30 10:58] LABS: ALANINE AMINOTRANSFERASE 12 U/L (0-55); ALBUMIN 3.2 GM/DL (3.2-4.5); ALKALINE PHOSPHATASE 92 U/L (40-136); BILIRUBIN,TOTAL 0.5 MG/DL (0.1-1.0); BUN/CREATININE RATIO 16; CALCIUM 8.5 MG/DL (8.5-10.1); CARBON DIOXIDE 25 MMOL/L (21-32); CHLORIDE 106 MMOL/L (98-107); CREATININE SERUM 0.99 MG/DL (0.60-1.30); GFR ESTIMATED > 60; GLUCOSE 134 MG/DL (70-105); POTASSIUM 3.6 MMOL/L (3.6-5.0); SODIUM 138 MMOL/L (135-145); TOTAL PROTEIN 5.9 GM/DL (6.4-8.2)
== END | disposition home or self-care (01) ==
LOC: ONC 10-01 12:43
PROVIDERS: ATTEND Internal Medicine Hematology & Oncology
DX: Z51.0 Encounter for antineoplastic radiation therapy (principal); C18.7 Malignant neoplasm of sigmoid colon; C77.2 Secondary and unspecified malignant neoplasm of intra-abdominal lymph nodes; Z90.81 Acquired absence of spleen
CPT/HCPCS: 36415; 77290; 77334; 77336; 77417; 77470; 80048; 80053; 82378; 83735; 85025; 96360; 96365; 99213; 99214; 99215

== ENCOUNTER → 2019-12-30 | Outpatient (CLI) | payer MEDICARE ==
[~2019-12-30] MED LIST changes: +CATHETER FLUSH 10 ML SYR IV PRN; +HOLD METFORMIN - RECEIVED CONTRAST 20 ML VIAL IV SCH; +IOHEXOL 350 MG/ML 100 ML (OMNIPAQUE 350) VIAL IV ONE; -MAGNESIUM SULFATE IV ONE; +NS 100 ML (IVPB) BAG IV ONE; -NS IV 1000 ML (CANCER CTR) 1,000 ML ONE; -POTASSIUM CHL IV ONE; -SUCRALFATE 1 GM (CARAFATE) TAB PO ONE; -[UNRECOGNIZED DRUG - OTHER] IV ONE; -[UNRECOGNIZED DRUG - OTHER] IV ONE
--- NOTE | 2019-12-30 12:59 | Diagnostic Imaging Report ---
PROCEDURE: CT abdomen and pelvis with and without contrast. TECHNIQUE: Precontrast acquisitions were acquired through the abdomen and pelvis. Multiple contiguous axial images were obtained through the abdomen and pelvis after the administration of intravenous contrast. Auto Exposure Controls were utilized during the CT exam to meet ALARA standards for radiation dose reduction. INDICATION: Abdominal pain, right lower quadrant pain. On prior PET/CT report of 10/07/2019, this patient has a history of colorectal cancer. COMPARISON: Study correlated with CT fusion PET of 10/07/2019 and compared with abdominopelvic CT of 08/29/2019. FINDINGS: The oral contrast is predominantly remaining within the stomach, duodenum, and only a portion extends beyond the level of the ligament of Treitz. There was no demonstrated extravasation. Previous hypermetabolic mass in the left upper quadrant mesentery can no longer be identified. No perianastomotic fluid collection is found. Previous leftward mesenteric mass just below the aortic bifurcation ventral to the left common iliac artery is also no longer identified. Sigmoidal mass is presumed surgically removed. There are some lymph nodes in the right lower quadrant mesentery which were not present on previous imaging, the largest of these is 1.4 x 1.0 cm. These are equivocal and may be reactive inflammatory disease. The appendix is visualized and it appeared unremarkable. There is new abnormal thickening of the dodge of the distal small bowel extending through the terminal ileum with small-volume pelvic free fluid. No loculated fluid collection. No pneumatosis or free gas. There is no identifiable liver mass. The adrenals are negative. The urinary tracts are unobstructed. IMPRESSION: 1. Findings of distal small bowel thickening and inflammation with likely some mild right lower quadrant reactive mesenteric adenopathy as a new finding. The findings would be consistent with nonspecific enteritis. 2. The left-sided mesenteric soft tissue masses, well seen on previous imaging, are no longer identified. There is no evidence for liver metastasis and no perianastomotic abnormality. 3. Unobstructed urinary tracts with unremarkable appendix. Dictated by: Dictated on workstation # [id number]
== END ==
LOC: RAD 10:52
PROVIDERS: ATTEND Nurse Practitioner Adult Health
DX: C20 Malignant neoplasm of rectum (principal); C77.2 Secondary and unspecified malignant neoplasm of intra-abdominal lymph nodes; K63.89 Other specified diseases of intestine; Z98.890 Other specified postprocedural states
CPT/HCPCS: 74178

== ENCOUNTER 2020-01-01 05:32 | Outpatient (CLI) | payer MEDICARE ==
[~2020-01-01] VITALS: Ht 177.8 cm; Wt 67.7 kg
[~2020-01-01 05:32] MED LIST changes: -CATHETER FLUSH 10 ML SYR IV PRN; -HOLD METFORMIN - RECEIVED CONTRAST 20 ML VIAL IV SCH; -HYOS-20 PO; -IOHEXOL 350 MG/ML 100 ML (OMNIPAQUE 350) VIAL IV ONE; -NS 100 ML (IVPB) BAG IV ONE
[2020-01-01] MEDS ORDERED: HYOS-20 PO (11:56)
== END 2020-01-01 12:07 | disposition home or self-care (01) ==
LOC: PREOP 05:32
PROVIDERS: ATTEND Surgery
DX: Z01.818 Encounter for other preprocedural examination (principal)

== ENCOUNTER 2020-01-14 08:55 | Day surgery (SDC) | payer MEDICARE ==
[~2020-01-14] VITALS: Ht 177.8 cm; Wt 67.7 kg
[2020-01-14] VITALS (8 sets, daily range): BP systolic 108–141; BP diastolic 78–92
[~2020-01-14 08:55] MED LIST changes: -HYDR-3812 PO; +HYOS-20 PO
[2020-01-14] MEDS ORDERED: LACTATED RINGERS 1,000 ML IV PRN (09:04)
[2020-01-14] MEDS ORDERED: ceFAZolin 2 GM/50 ML NS 50 ML IV ONE (09:15)
[2020-01-14] MEDS ORDERED: HEParin (CENTRAL IV FLUSH) 500 UNIT/5 ML SYR ONE (09:33)
[2020-01-14] MEDS ORDERED: 0.9% SODIUM CHLORIDE PF INJ 20 ML VIAL ONE (09:33)
[2020-01-14] MEDS ORDERED: BUP/EPI 0.5% 1:200,000 (SENSORCAINE) 30 ML VIAL ONE (09:34)
[2020-01-14] MEDS ORDERED: PROPOFOL INJECTION 50 ML IV ONE (10:24)
[2020-01-14] MEDS ORDERED: MIDAZOLAM 2 MG/2 ML (VERSED) VIAL ONE (10:25)
[2020-01-14] MEDS ORDERED: KETAMINE/NaCl 50 MG/5 ML SYRINGE (ED ONLY) ONE (10:26)
--- NOTE | 2020-01-14 10:33 | Progress Note-Pre Operative ---
Pre-Operative Progress Note H&P Reviewed The H&P was reviewed, patient examined and no changes noted. Time Seen by Provider: 10:31 Date H&P Reviewed: Jan 14, 2020 Time H&P Reviewed: 10:31 Pre-Operative Diagnosis: Rectal Ca, Venous Insufficiency STARR PAGAN DO Jan 14, 2020 10:33
--- NOTE | 2020-01-14 11:26 | Progress Note-Post Operative ---
Post-Operative Progess Note Surgeon (s)/Manager Winter (s) Surgeon STARR PAGAN DO Manager Winter: JLUIS Jaquez Pre-Operative Diagnosis Rectal Ca, Venous Insufficiency Post-Operative Diagnosis same Procedure & Operative Findings Date of Procedure 01/14/20 Procedure Performed/Findings Jazz-cath insertion Anesthesia Type IV sedation by BAR HOST Estimated Blood Loss Estimated blood loss (mL): scant Specimens/Packing Specimens Removed none STARR PAGAN DO Jan 14, 2020 11:26
--- NOTE | 2020-01-14 11:28 | Discharge Inst-Surgical ---
Discharge Inst-Surgical Depart Medication/Instructions New, Converted or Re-Newed RX: Other (no Rx needed) Patient Instructions Follow up Appt: Make appointment for 1 week. [phone] Instructions: May shower in 24 hours, no tub bath or soaking. Use incentive spirometer at home as directed. No Smoking Skin/Wound Care: May remove bandages in am. You need to leave the Dermabond on incision it will fall off on it's own. Symptoms to Report: Appetite Changes, Extremity Discoloration, Numbness/Tingling, Swelling Increased, Bleeding Excessive, Eyesight Changes, Pain Increased, Urine Color Change, Constipation(Persistent), Fever over 101 degree F, Pain/Pressure in chest, Urinating Difficulty, Cough Up/Vomit Blood, Heart Beat Irreg/Pounding, Pa in/Pressure in jaw, Cramps in feet or legs, Lightheadedness, Pain/Pressure in shoulder, Diarrhea(Persistent), Memory Changes Suddenly, Questions/Concerns, Weight gain consecutive days, Dizziness/Fainting, Nausea/Vomiting, Shortness of Breath, Weight gain over 2 pounds If questions or concerns contact your physician Or seek help at emergency department. Activity Activity as Tolerated: Yes Activity Instructions: Avoid Stress to Incision Driving Instructions: You May Drive Diet Discharge Diet: No Restrictions Diet After 24 Hours: Clear Liquid if Nauseous If Any Problems/Questions/Issu: Contact Your Physician, Go to Emergency Room Skin/Wound Care Infection Signs and Symptoms: Increased Redness, Foul Odor of Wound, Increased Drainage, Skin Itchy or Has a Rash, Increased Swelling, Temperature Above 101 F Bathing Instructions: Shower Stitches/[place]/Dermabond Dis: Dermabond Ice Pack: Ice On and Off Site (as needed for pain) STARR PAGAN DO Jan 14, 2020 11:28
--- NOTE | 2020-01-14 12:44 | Diagnostic Imaging Report ---
EXAMINATION: Fluoroscopy. INDICATION: Port insertion. TECHNIQUE: Fluoroscopic assistance was provided for Dr. Mendoza during his port insertion procedure. 10.5 seconds of fluoroscopy time was utilized. Two spot films of the chest were received from the OR. There is a Port-A-Cath in place on the right with the tip of the catheter overlying the distal superior vena cava. IMPRESSION: Fluoroscopic assistance was provided for Dr. Mendoza. Dictated by: Dictated on workstation # [id number]
--- NOTE | 2020-01-14 18:32 | Operative Report ---
Operative Report Date of Procedure/Surgery Jan 14, 2020 Surgeon (s) STARR PAGAN DO Speech Coach (s): YULI JaquezII Post-Operative Diagnosis Rectal CA, Venous Insufficiency Procedure Performed Port a Cath insertion Description of Procedure Anesthesia Type: MAC Estimated blood loss (mL): scant Specimen(s) collected/removed none Description of the Procedure PROCEDURE: [Right] Sub clavian port placement COMPLICATIONS: None. INDICATIONS: The patient is a 74 year old male [with rectal CA and venous insufficiency]. Patient understands the risks and benefits of port placement and wished to proceed with the procedure. Consent was signed on the chart. PROCEDURE: The patient was taken to the operating suite, was prepped and draped in the sterile fashion. A surgical pause was performed. Started by injecting located anesthetic towards clavicle and in the left anterior chest wall (where pocket would be created. Using micro- access kit, the right subclavian vein was accessed. Dark nonpulsatile blood was withdrawn. The wire was inserted. Fluoroscopy assured proper placement. The needle was removed. The micro-access dilator was advanced over the wire and the wire was removed. The regular wire was inserted and fluoroscopy assured proper placement. The wire was then secured. Local anesthetic was used to anesthetize from the access site for tunneling down to the right chest and for pocket creation. A [#11] blade scalpel was used to make an incision over the [right] chest and stab incision at guidewire. Cautery was used to dissect down to the pectoral fascia. A pocket was created with blunt dissection. The dilator sheath was then advanced over the wire under fluoroscopy and the dilator and wire were removed. The Groshong catheter was inserted through the sheath and the sheath was then removed. The Groshong wire was removed. The catheter was then tunneled to the right chest pocket. Fluoroscopy was used to cut to length and this was then attached to the port which was then placed within the pocket. The port was then accessed without difficulty. It was then flushed with saline and then heparin. The subcutaneous tissues were then reapproximated using 3-0 Vicryl. Then 4-0 monocryl was used in 3 subcuticular stitches to close the skin. The areas were then washed and dried. Skin Affix was placed over incision. The insertion point of the neck Skin Affix was placed over the incision. The patient tolerated the procedure well without complication and was taken to recovery room in stable condition. Findings of the Procedure Port placed in Right Subclavian vein. Allergies and Home Medications Allergies Coded Allergies: No Known Drug Allergies (Unverified , 08/28/19) Home Medications Hydrocodone Bit/Acetaminophen 1 Tab Tab, 1 TAB PO Q6H PRN for PAIN-MODERATE Prescribed by: STARR PAGAN on 10/15/19 1620 Hyoscyamine Sulfate 0.125 Mg Tablet, 0.125 MG PO TID PRN for colon spasms, (Reported) Patient Home Medication List Home Medication List Reviewed: Yes STARR PAGAN DO Jan 14, 2020 18:32
--- OUTSIDE RECORDS SUMMARY | 2020-01-16 04:53 | XMS REPORT | Continuity of Care Document ---
Author Organization Unknown Address Unknown Phone Unavailable Allergies Active Description Code Type Severity Reaction Onset Reported/Identified Relationship to Patient Clinical Status Yes No Known Drug Allergies [id number] Drug Allergy Unknown N/A 08/28/2019 Medications There is no data. 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 2 SECONDARY AND UNSP MALIGNANT NEOPLASM OF 08/31/2019 LEAH MURPHY MD Ot K59. 00 CONSTIPATION, UNSPECIFIED 08/31/2019 LEAH MURPHY MD Ot K63. 9 DISEASE OF INTESTINE, UNSPECIFIED 08/31/2019 LEAH MURPHY MD Ot R19. 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 10/08/2019 SHAUNNA ESPINOZA Ot C20 MALIGNANT NEOPLASM OF RECTUM 10/14/2019 DELMAN DO STARR B Ot Z01.8 18 ENCOUNTER FOR OTHER PREPROCEDURAL EXAMIN 10/14/2019 DELMAN DO, STARR B Ot Z01.8 18 ENCOUNTER FOR OTHER PREPROCEDURAL EXAMIN 10/14/2019 DELMAN DO STARR B Ot Z01.8 18 ENCOUNTER FOR OTHER PREPROCEDURAL EXAMIN 10/16/2019 LATASHA SHUKLA STARR B Ot C77.2 SECONDARY AND UNSP MALIGNANT NEOPLASM OF 10/16/2019 LATASHA SHUKLA STARR B Ot K21.9 GASTRO-ESOPHAGEAL REFLUX DISEASE WITHOUT 10/16/2019 LATASHA SHUKLA STARR B Ot 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 10/16/2019 LATASHA SHUKLA STARR B Ot R59.9 ENLARGED LYMPH NODES, UNSPECIFIED 10/16/2019 LATASHA SHUKLA STARR B Ot Z53.3 1 LAPAROSCOPIC SURGICAL PROCEDURE CONVERTE 10/16/2019 LATASHA SHUKLA STARR B Ot Z85.0 48 PRSNL HX OF MALIG NEOPLM OF RECTUM, RECT 10/16/2019 LATASHA SHUKLA STARR B Ot Z90.8 1 ACQUIRED ABSENCE OF SPLEEN 10/20/2019 JACKSONVICTOR HUGO SHUKLA STARR B Ot Z01.8 18 ENCOUNTER FOR OTHER PREPROCEDURAL EXAMIN 10/31/2019 SHAUNNA ESPINOZA N Ot C18.7 MALIGNANT NEOPLASM OF SIGMOID COLON 10/31/2019 SHAUNNA ESPINOZA N Ot C77.2 SECONDARY AND UNSP MALIGNANT NEOPLASM OF 10/31/2019 SHAUNNA ESPINOZA N Ot 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 10/31/2019 ALEXIS BOBAN N Ot C20 MALIGNANT NEOPLASM OF RECTUM 11/06/2019 SHAUNNA ESPINOZA N Ot C18.7 MALIGNANT NEOPLASM OF SIGMOID COLON 11/06/2019 ALEXIS BOBHATTIE N Ot C77.2 SECONDARY AND UNSP MALIGNANT NEOPLASM OF 11/06/2019 ALEXIS BOBAN N Ot 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 11/06/2019 CINTHYA ESPINOZAAN N Ot C20 MALIGNANT NEOPLASM OF RECTUM 12/30/2019 SHAUNNA ESPINOZA N Ot C18.7 MALIGNANT NEOPLASM OF SIGMOID COLON 12/30/2019 SHAUNNA ESPINOZA N Ot C77.2 SECONDARY AND UNSP MALIGNANT NEOPLASM OF 12/30/2019 SHAUNNA ESPINOZA N Ot Z51.0 ENCOUNTER FOR ANTINEOPLASTIC RADIATION T 12/30/2019 SHAUNNA ESPINOZA N Ot 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 12/31/2019 SHAUNNA ESPINOZA N Ot C18.7 MALIGNANT NEOPLASM OF SIGMOID COLON 12/31/2019 SHAUNNA ESPINOZA N Ot C77.2 SECONDARY AND UNSP MALIGNANT NEOPLASM OF 12/31/2019 SHAUNNA ESPINOZA N Ot Z51.0 ENCOUNTER FOR ANTINEOPLASTIC RADIATION T 12/31/2019 SHAUNNA ESPINOZA N Ot 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 01/01/2020 STARR PAGAN DO Ot Z01.8 18 ENCOUNTER FOR OTHER PREPROCEDURAL EXAMIN 01/05/2020 SHAUNNA ESPINOZA N Ot C18.7 MALIGNANT NEOPLASM OF SIGMOID COLON 01/05/2020 SHAUNNA ESPINOZA N Ot C77.2 SECONDARY AND UNSP MALIGNANT NEOPLASM OF 01/05/2020 SHAUNNA ESPINOZA N Ot Z51.0 ENCOUNTER FOR ANTINEOPLASTIC RADIATION T 01/05/2020 SHAUNNA ESPINOZA N Ot 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 01/06/2020 SHAUNNA ESPINOZA N Ot C20 MALIGNANT NEOPLASM OF RECTUM 01/06/2020 CARREON, HILAH S WIRE ROPE SLING MAKER Ot C 20 MALIGNANT NEOPLASM OF RECTUM 01/06/2020 CARREON, HILAH S [employer]OPE SLING MAKER Ot C77.2 SECONDARY AND UNSP MALIGNANT NEOPLASM OF 01/06/2020 CARREON, HILAH S W[employer]OPE SLING MAKER Ot K63.89 OTHER SPECIFIED DISEASES OF INTESTINE 01/06/2020 CARREON, HILAH S WIRE [employer]OPE SLING MAKER Ot Z98.890 OTHER SPECIFIED POSTPROCEDURAL STATES 01/06/2020 SHAUNNA ESPINOZA N Ot C18.7 MALIGNANT NEOPLASM OF SIGMOID COLON 01/06/2020 SHAUNNA ESPINOZA N Ot C77.2 SECONDARY AND UNSP MALIGNANT NEOPLASM OF 01/06/2020 SHAUNNA ESPINOZA N Ot 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 01/14/2020 ALEXIS CINTHYAHATTIE N Ot C19 MALIGNANT NEOPLASM OF RECTOSIGMOID JUNCT 01/14/2020 ALEXIS CINTHYAHATTIE N Ot Z92.21 PERSONAL HISTORY OF ANTINEOPLASTIC CHEMO 01/14/2020 ALEXIS SHAUNNA N Ot C20 MALIGNANT NEOPLASM OF RECTUM 01/14/2020 CARREON, HILAH S [employer]OPE SLING MAKER Ot C 20 MALIGNANT NEOPLASM OF RECTUM 01/14/2020 CARREON, HILAH S W[employer]OPE SLING MAKER Ot C77.2 SECONDARY AND UNSP MALIGNANT NEOPLASM OF 01/14/2020 CARREON, HILAH S W[employer]OPE SLING MAKER Ot K63.89 OTHER SPECIFIED DISEASES OF INTESTINE 01/14/2020 CARREON, HILAH S W[employer]OPE SLING MAKER Ot Z98.890 OTHER SPECIFIED POSTPROCEDURAL STATES 01/14/2020 ALEXIS SHAUNNA N Ot C19 MALIGNANT NEOPLASM OF RECTOSIGMOID JUNCT 01/14/2020 ALEXIS SHAUNNA N Ot Z92.21 PERSONAL HISTORY OF ANTINEOPLASTIC CHEMO Procedures Code Description Performed By Per formed On [id number] EX CISION OF AORTIC LYMPHATIC, OPEN APPRO 08/29/2019 [id number] EX CISION OF SIGMOID COLON, OPEN APPROACH 08/29/2019 [id number] EX CISION OF SIGMOID COLON, ENDO, DIAGN 08/29/2019 [id number] EX CISION OF RECTUM, OPEN APPROACH 08/29/2019 [id number] EX CISION OF MESENTERIC LYMPHATIC, OPEN A 10/15/2019 [id number] EX CISION OF SMALL INTESTINE, OPEN APPROA 10/15/2019 [id number] IN SPECTION OF PERITONEAL CAVITY, PERC EN 10/15/2019 Results Test Result Range Complete blood count (CBC) with automate d white blood cell (WBC) differential - 08/29/19 11:55 Blood leukocytes automated count (number/volume) 6.7 10*3/uL 4.3-11.0 Blood erythrocytes automated count (number/volume) 4.80 10*6/uL 4.35-5.85 Venous blood hemoglobin measurement (mass/volume) 14.1 g/dL 13.3-17.7 Blood hematocrit (volume fraction) 42 % 40-54 Automated erythrocyte mean corpuscular volume 88 [ foz_us] 80-99 Automated erythrocyte mean corpuscular h emoglobin (mass per erythrocyte) 29 pg 25-34 Automated erythrocyte mean corpuscular h emoglobin concentration measurement (mass/volume) 33 g/dL 32-36 Automated erythrocyte distribution width ratio 15. 2 % 10.0- 14.5 Automated blood platelet count (count/volume) 235 10*3/uL 130-400 Automated blood platelet mean volume measurement 10.6 [foz_us] 7.4-10.4 Automated blood neutrophils/100 leukocytes 51 % 42-75 Automated blood lymphocytes/100 leukocytes 32 % 12-44 Blood monocytes/100 leukocytes 10 % 0-12 Automated blood eosinophils/100 leukocytes 6 % 0-10 Automated blood basophils/100 leukocytes 1 % 0-10 Blood neutrophils automated count (number/volume) 3.4 10*3 1.8-7.8 Blood lymphocytes automated count (number/volume) 2.1 10*3 1.0-4.0 Blood monocytes automated count (number/volume) 0. 7 10*3 0.0-1.0 Automated eosinophil count 0.4 10*3/uL 0 .0-0.3 Automated blood basophil count (count/volume) 0.1 10*3/uL 0.0-0.1 PT panel in platelet poor plasma by coag ulation assay - 08/29/19 11:55 Prothrombin time (PT) in platelet poor plasma by coagu lation assay 14.8 s 12.2-14.7 INR in platelet poor plasma or blood by coagulation as say 1.1 0.8-1.4 Activated partial thromboplastin time (a PTT) in platelet poor plasma bycoagulation assay - 08/29/19 11:55 Activated partial thromboplastin time (a PTT) in platelet poor plasma bycoagulation assay 29 s 24-35 Comprehensive metabolic panel - 08/29/19 11:55 Serum or plasma sodium measurement (moles/volume) 138 mmol/L 135-145 Serum or plasma potassium measurement (moles/volume) 4.8 mmol/L 3.6-5.0 Serum or plasma chloride measurement (moles/volume) 105 mmol/L 98-107 Carbon dioxide 24 mmol/L 21-32 Serum or plasma anion gap determination (moles/volume) 9 mmol/L 5-14 Serum or plasma urea nitrogen measurement (mass/volume ) 14 mg/dL 7-18 Serum or plasma creatinine measurement (mass/volume) 0.94 mg/dL 0.60-1.30 Serum or plasma urea nitrogen/creatinine mass ratio 15 NRG Serum or plasma creatinine measurement w ith calculation of estimated glomerular filtration rate > NRG Serum or plasma glucose measurement (mass/volume) 90 mg/dL 70-105 Serum or plasma calcium measurement (mass/volume) 8.7 mg/dL 8.5-10.1 Serum or plasma total bilirubin measurement (mass/volu me) 0.9 mg/dL 0.1-1.0 Serum or plasma alkaline phosphatase scott surement (enzymatic activity/volume) 97 U/L 40-136 Serum or plasma aspartate aminotransfera se measurement (enzymatic activity/volume) 28 U/L 5-34 Serum or plasma alanine aminotransferase measurement (enzymatic activity/volume) 18 U/L 0-55 Serum or plasma protein measurement (mass/volume) 7.1 g/dL 6.4-8.2 Serum or plasma albumin measurement (mass/volume) 4.1 g/dL 3.2-4.5 CALCIUM CORRECTED 8.6 mg/dL 8.5-10.1 Serum ragweed IgE antibody assay - 08/29 11:55 [id number] 60.1 % 0.0-5.0 Blood type T Indirect antibody screen pa lb - 08/29/19 13:05 WRISTBAND NUMBER [id number] NRG ABO+Rh group OP NRG Blood group antibody screen NEGATIVE NR G Methicillin resistant Staphylococcus aur eus (MRSA) screening culture - 08/29/19 13:30 Methicillin resistant Staphylococcus aureus (MRSA) scr eening culture NEG NRG Methicillin resistant Staphylococcus aur eus (MRSA) screening culture - 10/15/19 11:30 Methicillin resistant Staphylococcus aureus (MRSA) scr eening culture NEG NRG Methicillin resistant Staphylococcus aur eus (MRSA) screening culture - 01/14/20 09:12 Methicillin resistant Staphylococcus aureus (MRSA) scr eening culture NEG NRG Encounters ACCT No. Visit Date/Time Discharge Status Pt. Type Provider Facility Loc./Unit Complaint [id number] 01/14/2020 08:55:00 12:42:00 DIS Outpatient STARR PAGAN DO [facility] SDC RECTAL CANCER [id number] 01/12/2020 10:20:00 23:59:59 CLS Outpatient SHAUNNA ESPINOZA [facility] ONC [id number] 01/01/2020 05:32:00 12:07:00 DIS Outpatient STARR PAGAN DO [facility] PREOP RECTAL CANCER [id number] 12/30/2019 10:52:00 23:59:59 CLS Outpatient JOHN CARREON [facility] RAD ABDOMINAL PAIN, MALIGNANT NEOPLASM OF RECTUM. [id number] 12/30/2019 09:29:00 00:01:00 DIS Outpatient SHAUNNA ESPINOZA [facility] ONC [id number] 10/15/2019 10:35:00 13:00:00 DIS Inpatient STARR PAGAN DO [facility] 4TH LYMPH NODE ABDOMEN [id number] 10/14/2019 10:30:00 10:57:00 DIS Outpatient STARR PAGAN DO [facility] PREOP ROBOTIC EXCISION ABDOMI NAL LYMPHNODE [id number] 10/07/2019 09:52:00 23:59:59 CLS Outpatient SHAUNNA ESPINOZA [facility] RAD MALIGNANT NEOPLASM OF R ECTUM [id number] 08/29/2019 16:57:00 13:20:00 DIS Inpatient LEAH MURPHY MD [facility] 4TH S/P LAR [id number] 08/28/2019 05:36:00 12:15:00 DIS Outpatient LEAH MURPHY MD [facility] PREOP COLONOSCOPY
--- NOTE | 2020-01-16 14:13 | Anesthesia-General Post-Op ---
MAC Significant Intra-Op Events Notes 01/14/20 @ 1150 Patient Condition Mental Status/LOC: Same as Preop Cardiovascular: Satisfactory Nausea/Vomiting: Absent Respiratory: Satisfactory Pain: Controlled Complications: Absent Post Op Complications Complications None Follow Up Care/Instructions Patient Instructions None needed. Anesthesiology Discharge Order Discharge Order Patient is doing well, no complaints, stable vital signs, no apparent adverse anesthesia problems. No complications reported per nursing. JAGDISH VASQUEZ CRNA Jan 16, 2020 14:13
== END 2020-01-14 12:42 | disposition home or self-care (01) ==
LOC: SDC 08:55
PROVIDERS: ATTEND Surgery
DX: C20 Malignant neoplasm of rectum (principal); I87.2 Venous insufficiency (chronic) (peripheral); K21.9 Gastro-esophageal reflux disease without esophagitis; Z87.891 Personal history of nicotine dependence; Z90.81 Acquired absence of spleen; Z86.03 Personal history of neoplasm of uncertain behavior; Z80.9 Family history of malignant neoplasm, unspecified
CPT/HCPCS: 87081

== ENCOUNTER 2020-03-30 09:00 | Outpatient (RCR) | payer MEDICARE ==
[2020-01-20 09:10] LABS: BASOPHILS # (AUTO) 0.1 10^3/uL (0.0-0.1); BASOPHILS % (AUTO) 1 % (0-10); EOSINOPHILS # (AUTO) 0.6 10^3/uL (0.0-0.3); EOSINOPHILS % (AUTO) 9 % (0-10); HEMATOCRIT 37 % (40-54); LYMPHOCYTES # (AUTO) 3.3 X 10^3 (1.0-4.0); LYMPHOCYTES % (AUTO) 46 % (12-44); MEAN CORPUSCULAR HGB CONC 33 G/DL (32-36); MEAN CORPUSCULAR VOLUME 93 FL (80-99); MEAN PLATELET VOLUME 10.1 FL (7.4-10.4); MONOCYTES # (AUTO) 0.7 X 10^3 (0.0-1.0); MONOCYTES % (AUTO) 10 % (0-12); NEUTROPHILS # (AUTO) 2.5 X 10^3 (1.8-7.8); NEUTROPHILS % (AUTO) 35 % (42-75); PLATELET COUNT 243 10^3/uL (130-400); RED CELL DISTRIBUTION WIDTH 18.7 % (10.0-14.5); WHITE BLOOD COUNT 7.2 10^3/uL (4.3-11.0)
[2020-01-20 09:12] LABS: MEAN CORPUSCULAR HEMOGLOBIN 30 PG (25-34)
[2020-01-20 09:31] LABS: ALANINE AMINOTRANSFERASE 17 U/L (0-55); ALBUMIN 3.4 GM/DL (3.2-4.5); ALKALINE PHOSPHATASE 97 U/L (40-136); BILIRUBIN,TOTAL 0.5 MG/DL (0.1-1.0); BUN/CREATININE RATIO 16; CALCIUM 8.4 MG/DL (8.5-10.1); CARBON DIOXIDE 23 MMOL/L (21-32); CHLORIDE 109 MMOL/L (98-107); CREATININE SERUM 0.82 MG/DL (0.60-1.30); GFR ESTIMATED > 60; GLUCOSE 134 MG/DL (70-105); MAGNESIUM 1.8 MG/DL (1.6-2.4); POTASSIUM 3.8 MMOL/L (3.6-5.0); SODIUM 140 MMOL/L (135-145); TOTAL PROTEIN 6.1 GM/DL (6.4-8.2)
[2020-01-27 09:51] LABS: BASOPHILS % (AUTO) 1 % (0-10); EOSINOPHILS # (AUTO) 0.7 10^3/uL (0.0-0.3); EOSINOPHILS % (AUTO) 9 % (0-10); HEMATOCRIT 39 % (40-54); HEMOGLOBIN 13.2 G/DL (13.3-17.7); LYMPHOCYTES # (AUTO) 2.5 X 10^3 (1.0-4.0); LYMPHOCYTES % (AUTO) 32 % (12-44); MEAN CORPUSCULAR HEMOGLOBIN 31 PG (25-34); MEAN CORPUSCULAR HGB CONC 34 G/DL (32-36); MEAN CORPUSCULAR VOLUME 91 FL (80-99); MEAN PLATELET VOLUME 10.3 FL (7.4-10.4); MONOCYTES # (AUTO) 0.7 X 10^3 (0.0-1.0); MONOCYTES % (AUTO) 9 % (0-12); NEUTROPHILS # (AUTO) 3.8 X 10^3 (1.8-7.8); NEUTROPHILS % (AUTO) 50 % (42-75); PLATELET COUNT 214 10^3/uL (130-400); RED CELL DISTRIBUTION WIDTH 17.5 % (10.0-14.5); WHITE BLOOD COUNT 7.7 10^3/uL (4.3-11.0)
[2020-01-27 10:10] LABS: BUN/CREATININE RATIO 23; CALCIUM 8.9 MG/DL (8.5-10.1); CARBON DIOXIDE 23 MMOL/L (21-32); CHLORIDE 106 MMOL/L (98-107); CREATININE SERUM 0.91 MG/DL (0.60-1.30); GFR ESTIMATED > 60; GLUCOSE 101 MG/DL (70-105); POTASSIUM 4.1 MMOL/L (3.6-5.0); SODIUM 139 MMOL/L (135-145)
[2020-02-03 09:41] LABS: BASOPHILS # (AUTO) 0.1 10^3/uL (0.0-0.1); BASOPHILS % (AUTO) 1 % (0-10); EOSINOPHILS # (AUTO) 0.4 10^3/uL (0.0-0.3); EOSINOPHILS % (AUTO) 7 % (0-10); HEMATOCRIT 33 % (40-54); LYMPHOCYTES # (AUTO) 2.3 X 10^3 (1.0-4.0); LYMPHOCYTES % (AUTO) 41 % (12-44); MEAN CORPUSCULAR HGB CONC 33 G/DL (32-36); MEAN CORPUSCULAR VOLUME 92 FL (80-99); MEAN PLATELET VOLUME 9.8 FL (7.4-10.4); MONOCYTES # (AUTO) 0.7 X 10^3 (0.0-1.0); MONOCYTES % (AUTO) 13 % (0-12); NEUTROPHILS # (AUTO) 2.1 X 10^3 (1.8-7.8); NEUTROPHILS % (AUTO) 38 % (42-75); PLATELET COUNT 203 10^3/uL (130-400); RED CELL DISTRIBUTION WIDTH 18.8 % (10.0-14.5); WHITE BLOOD COUNT 5.6 10^3/uL (4.3-11.0)
[2020-02-03 09:43] LABS: MEAN CORPUSCULAR HEMOGLOBIN 30 PG (25-34)
[2020-02-03 10:00] LABS: ALANINE AMINOTRANSFERASE 12 U/L (0-55); ALBUMIN 3.3 GM/DL (3.2-4.5); ALKALINE PHOSPHATASE 94 U/L (40-136); BILIRUBIN,TOTAL 0.3 MG/DL (0.1-1.0); BUN/CREATININE RATIO 16; CARBON DIOXIDE 20 MMOL/L (21-32); CHLORIDE 111 MMOL/L (98-107); CREATININE SERUM 0.81 MG/DL (0.60-1.30); GFR ESTIMATED > 60; GLUCOSE 107 MG/DL (70-105); MAGNESIUM 1.7 MG/DL (1.6-2.4); POTASSIUM 3.6 MMOL/L (3.6-5.0); SODIUM 141 MMOL/L (135-145); TOTAL PROTEIN 5.8 GM/DL (6.4-8.2)
[2020-02-10 09:20] LABS: BASOPHILS # (AUTO) 0.1 10^3/uL (0.0-0.1); BASOPHILS % (AUTO) 1 % (0-10); EOSINOPHILS # (AUTO) 0.5 10^3/uL (0.0-0.3); EOSINOPHILS % (AUTO) 9 % (0-10); HEMATOCRIT 37 % (40-54); HEMOGLOBIN 12.2 G/DL (13.3-17.7); LYMPHOCYTES # (AUTO) 2.3 X 10^3 (1.0-4.0); LYMPHOCYTES % (AUTO) 44 % (12-44); MEAN CORPUSCULAR HEMOGLOBIN 31 PG (25-34); MEAN CORPUSCULAR HGB CONC 33 G/DL (32-36); MEAN CORPUSCULAR VOLUME 93 FL (80-99); MEAN PLATELET VOLUME 10.2 FL (7.4-10.4); MONOCYTES # (AUTO) 0.7 X 10^3 (0.0-1.0); MONOCYTES % (AUTO) 13 % (0-12); NEUTROPHILS # (AUTO) 1.8 X 10^3 (1.8-7.8); NEUTROPHILS % (AUTO) 34 % (42-75); PLATELET COUNT 209 10^3/uL (130-400); RED CELL DISTRIBUTION WIDTH 18.2 % (10.0-14.5); WHITE BLOOD COUNT 5.2 10^3/uL (4.3-11.0)
[2020-02-10 09:21] LABS: SMEAR SCAN COMMENT YES
[2020-02-10 09:29] LABS: CHLORIDE 110 MMOL/L (98-107); POTASSIUM 4.4 MMOL/L (3.6-5.0); SODIUM 142 MMOL/L (135-145)
[2020-02-10 09:30] LABS: CALCIUM 8.3 MG/DL (8.5-10.1)
[2020-02-10 09:31] LABS: GLUCOSE 112 MG/DL (70-105)
[2020-02-10 09:32] LABS: CARBON DIOXIDE 22 MMOL/L (21-32)
[2020-02-10 09:35] LABS: GFR ESTIMATED > 60
[2020-02-10 09:36] LABS: BUN/CREATININE RATIO 17
[2020-02-17 09:42] LABS: BASOPHILS # (AUTO) 0.1 10^3/uL (0.0-0.1); BASOPHILS % (AUTO) 1 % (0-10); EOSINOPHILS # (AUTO) 0.4 10^3/uL (0.0-0.3); EOSINOPHILS % (AUTO) 6 % (0-10); HEMATOCRIT 35 % (40-54); HEMOGLOBIN 11.6 G/DL (13.3-17.7); LYMPHOCYTES # (AUTO) 1.8 X 10^3 (1.0-4.0); LYMPHOCYTES % (AUTO) 30 % (12-44); MEAN CORPUSCULAR HEMOGLOBIN 31 PG (25-34); MEAN CORPUSCULAR HGB CONC 33 G/DL (32-36); MEAN CORPUSCULAR VOLUME 93 FL (80-99); MEAN PLATELET VOLUME 10.1 FL (7.4-10.4); MONOCYTES # (AUTO) 0.8 X 10^3 (0.0-1.0); MONOCYTES % (AUTO) 13 % (0-12); NEUTROPHILS % (AUTO) 49 % (42-75); PLATELET COUNT 188 10^3/uL (130-400); RED CELL DISTRIBUTION WIDTH 18.6 % (10.0-14.5)
[2020-02-17 10:11] LABS: ALANINE AMINOTRANSFERASE 11 U/L (0-55); ALBUMIN 3.5 GM/DL (3.2-4.5); ALKALINE PHOSPHATASE 101 U/L (40-136); BILIRUBIN,TOTAL 0.4 MG/DL (0.1-1.0); BUN/CREATININE RATIO 16; CALCIUM 8.1 MG/DL (8.5-10.1); CARBON DIOXIDE 22 MMOL/L (21-32); CHLORIDE 109 MMOL/L (98-107); CREATININE SERUM 0.81 MG/DL (0.60-1.30); GFR ESTIMATED > 60; GLUCOSE 130 MG/DL (70-105); MAGNESIUM 1.6 MG/DL (1.6-2.4); POTASSIUM 3.6 MMOL/L (3.6-5.0); SODIUM 139 MMOL/L (135-145); TOTAL PROTEIN 6.1 GM/DL (6.4-8.2)
[2020-02-24 10:28] LABS: BASOPHILS % (AUTO) 1 % (0-10); EOSINOPHILS # (AUTO) 0.4 10^3/uL (0.0-0.3); EOSINOPHILS % (AUTO) 9 % (0-10); HEMATOCRIT 35 % (40-54); HEMOGLOBIN 11.5 G/DL (13.3-17.7); LYMPHOCYTES # (AUTO) 1.8 X 10^3 (1.0-4.0); LYMPHOCYTES % (AUTO) 38 % (12-44); MEAN CORPUSCULAR HEMOGLOBIN 31 PG (25-34); MEAN CORPUSCULAR HGB CONC 33 G/DL (32-36); MEAN CORPUSCULAR VOLUME 94 FL (80-99); MONOCYTES # (AUTO) 0.8 X 10^3 (0.0-1.0); MONOCYTES % (AUTO) 17 % (0-12); NEUTROPHILS # (AUTO) 1.7 X 10^3 (1.8-7.8); NEUTROPHILS % (AUTO) 36 % (42-75); PLATELET COUNT 198 10^3/uL (130-400); RED CELL DISTRIBUTION WIDTH 18.1 % (10.0-14.5); WHITE BLOOD COUNT 4.7 10^3/uL (4.3-11.0)
[2020-02-24 10:49] LABS: BUN/CREATININE RATIO 22; CALCIUM 8.1 MG/DL (8.5-10.1); CARBON DIOXIDE 25 MMOL/L (21-32); CHLORIDE 110 MMOL/L (98-107); CREATININE SERUM 0.83 MG/DL (0.60-1.30); GFR ESTIMATED > 60; GLUCOSE 79 MG/DL (70-105); POTASSIUM 4.5 MMOL/L (3.6-5.0); SODIUM 141 MMOL/L (135-145)
[2020-03-02 09:44] LABS: BASOPHILS # (AUTO) 0.1 10^3/uL (0.0-0.1); BASOPHILS % (AUTO) 1 % (0-10); EOSINOPHILS # (AUTO) 0.4 10^3/uL (0.0-0.3); EOSINOPHILS % (AUTO) 8 % (0-10); HEMATOCRIT 33 % (40-54); HEMOGLOBIN 11.1 G/DL (13.3-17.7); LYMPHOCYTES # (AUTO) 1.6 X 10^3 (1.0-4.0); LYMPHOCYTES % (AUTO) 32 % (12-44); MEAN CORPUSCULAR HEMOGLOBIN 31 PG (25-34); MEAN CORPUSCULAR HGB CONC 33 G/DL (32-36); MEAN CORPUSCULAR VOLUME 94 FL (80-99); MEAN PLATELET VOLUME 9.6 FL (7.4-10.4); MONOCYTES # (AUTO) 0.7 X 10^3 (0.0-1.0); MONOCYTES % (AUTO) 13 % (0-12); NEUTROPHILS # (AUTO) 2.3 X 10^3 (1.8-7.8); NEUTROPHILS % (AUTO) 46 % (42-75); PLATELET COUNT 175 10^3/uL (130-400); RED CELL DISTRIBUTION WIDTH 18.4 % (10.0-14.5); WHITE BLOOD COUNT 5.1 10^3/uL (4.3-11.0)
[2020-03-02 10:05] LABS: ALANINE AMINOTRANSFERASE 11 U/L (0-55); ALBUMIN 3.3 GM/DL (3.2-4.5); ALKALINE PHOSPHATASE 94 U/L (40-136); BILIRUBIN,TOTAL 0.3 MG/DL (0.1-1.0); BUN/CREATININE RATIO 18; CALCIUM 7.9 MG/DL (8.5-10.1); CARBON DIOXIDE 22 MMOL/L (21-32); CHLORIDE 110 MMOL/L (98-107); GFR ESTIMATED > 60; GLUCOSE 110 MG/DL (70-105); MAGNESIUM 1.7 MG/DL (1.6-2.4); POTASSIUM 3.8 MMOL/L (3.6-5.0); SODIUM 139 MMOL/L (135-145); TOTAL PROTEIN 5.8 GM/DL (6.4-8.2)
[2020-03-09 09:26] LABS: HEMATOCRIT 36 % (40-54); HEMOGLOBIN 12.1 G/DL (13.3-17.7); WHITE BLOOD COUNT 3.8 10^3/uL (4.3-11.0)
[2020-03-09 09:27] LABS: BASOPHILS % (AUTO) 1 % (0-10); EOSINOPHILS # (AUTO) 0.3 10^3/uL (0.0-0.3); EOSINOPHILS % (AUTO) 8 % (0-10); LYMPHOCYTES # (AUTO) 1.4 X 10^3 (1.0-4.0); LYMPHOCYTES % (AUTO) 37 % (12-44); MEAN CORPUSCULAR HEMOGLOBIN 31 PG (25-34); MEAN CORPUSCULAR HGB CONC 33 G/DL (32-36); MEAN CORPUSCULAR VOLUME 94 FL (80-99); MEAN PLATELET VOLUME 10.1 FL (7.4-10.4); MONOCYTES # (AUTO) 0.5 X 10^3 (0.0-1.0); MONOCYTES % (AUTO) 14 % (0-12); NEUTROPHILS # (AUTO) 1.6 X 10^3 (1.8-7.8); NEUTROPHILS % (AUTO) 42 % (42-75); PLATELET COUNT 188 10^3/uL (130-400); RED CELL DISTRIBUTION WIDTH 17.3 % (10.0-14.5)
[2020-03-09 09:49] LABS: BUN/CREATININE RATIO 15; CALCIUM 7.9 MG/DL (8.5-10.1); CARBON DIOXIDE 23 MMOL/L (21-32); CHLORIDE 108 MMOL/L (98-107); CREATININE SERUM 0.85 MG/DL (0.60-1.30); GFR ESTIMATED > 60; GLUCOSE 105 MG/DL (70-105); POTASSIUM 3.9 MMOL/L (3.6-5.0); SODIUM 139 MMOL/L (135-145)
[2020-03-16 10:01] LABS: BASOPHILS # (AUTO) 0.1 10^3/uL (0.0-0.1); BASOPHILS % (AUTO) 1 % (0-10); EOSINOPHILS # (AUTO) 0.3 10^3/uL (0.0-0.3); EOSINOPHILS % (AUTO) 6 % (0-10); HEMATOCRIT 35 % (40-54); HEMOGLOBIN 11.8 G/DL (13.3-17.7); LYMPHOCYTES # (AUTO) 2.1 X 10^3 (1.0-4.0); LYMPHOCYTES % (AUTO) 38 % (12-44); MEAN CORPUSCULAR HGB CONC 33 G/DL (32-36); MEAN CORPUSCULAR VOLUME 94 FL (80-99); MEAN PLATELET VOLUME 9.9 FL (7.4-10.4); MONOCYTES # (AUTO) 0.9 X 10^3 (0.0-1.0); MONOCYTES % (AUTO) 15 % (0-12); NEUTROPHILS # (AUTO) 2.3 X 10^3 (1.8-7.8); NEUTROPHILS % (AUTO) 40 % (42-75); PLATELET COUNT 192 10^3/uL (130-400); WHITE BLOOD COUNT 5.6 10^3/uL (4.3-11.0)
[2020-03-16 10:02] LABS: MEAN CORPUSCULAR HEMOGLOBIN 31 PG (25-34)
[2020-03-16 10:27] LABS: ALANINE AMINOTRANSFERASE 13 U/L (0-55); ALBUMIN 3.4 GM/DL (3.2-4.5); ALKALINE PHOSPHATASE 102 U/L (40-136); BILIRUBIN,TOTAL 0.4 MG/DL (0.1-1.0); BUN/CREATININE RATIO 17; CALCIUM 8.3 MG/DL (8.5-10.1); CARBON DIOXIDE 22 MMOL/L (21-32); CHLORIDE 110 MMOL/L (98-107); CREATININE SERUM 0.78 MG/DL (0.60-1.30); GFR ESTIMATED > 60; GLUCOSE 106 MG/DL (70-105); MAGNESIUM 1.7 MG/DL (1.6-2.4); POTASSIUM 3.7 MMOL/L (3.6-5.0); SODIUM 139 MMOL/L (135-145)
[2020-03-23 09:42] LABS: BASOPHILS % (AUTO) 1 % (0-10); EOSINOPHILS # (AUTO) 0.3 10^3/uL (0.0-0.3); EOSINOPHILS % (AUTO) 6 % (0-10); HEMATOCRIT 38 % (40-54); HEMOGLOBIN 12.4 G/DL (13.3-17.7); LYMPHOCYTES # (AUTO) 1.7 X 10^3 (1.0-4.0); LYMPHOCYTES % (AUTO) 38 % (12-44); MEAN CORPUSCULAR HEMOGLOBIN 31 PG (25-34); MEAN CORPUSCULAR HGB CONC 33 G/DL (32-36); MEAN CORPUSCULAR VOLUME 95 FL (80-99); MEAN PLATELET VOLUME 10.1 FL (7.4-10.4); MONOCYTES # (AUTO) 0.7 X 10^3 (0.0-1.0); MONOCYTES % (AUTO) 15 % (0-12); NEUTROPHILS # (AUTO) 1.8 X 10^3 (1.8-7.8); NEUTROPHILS % (AUTO) 40 % (42-75); PLATELET COUNT 215 10^3/uL (130-400); RED CELL DISTRIBUTION WIDTH 17.2 % (10.0-14.5); WHITE BLOOD COUNT 4.5 10^3/uL (4.3-11.0)
[2020-03-23 10:04] LABS: BUN/CREATININE RATIO 22; CALCIUM 8.3 MG/DL (8.5-10.1); CARBON DIOXIDE 24 MMOL/L (21-32); CHLORIDE 110 MMOL/L (98-107); CREATININE SERUM 0.88 MG/DL (0.60-1.30); GFR ESTIMATED > 60; GLUCOSE 101 MG/DL (70-105); SODIUM 141 MMOL/L (135-145)
[~2020-03-30] VITALS: Ht 180.3 cm; Wt 70.3 kg
[~2020-03-30 09:00] MED LIST changes: +D5W 500 ML IV (CANCER CTR) 500 ML IV SCH; +FLUOROURACIL IV SCH; +FOSAPREPITANT DIMEGLUMINE 150 MG in NS (IVPB) CANCER CENTER ONLY 150 ML IV SCH; +LEUCOVORIN CALCIUM 500 MG, LEUCOVORIN CALCIUM 100 MG in D5W 250 ML IVPB (CANCER CTR) 25... IV SCH; +LEUCOVORIN CALCIUM 600 MG in D5W 250 ML IVPB (CANCER CTR) 250 ML IV SCH; +LEUCOVORIN CALCIUM 700 MG in D5W 250 ML IVPB (CANCER CTR) 250 ML IV SCH; +NS IV 500 ML (CANCER CENTER) 500 ML ONE; +NS IV SCH; +OXALIPLATIN 100 MG, OXALIPLATIN (GENERIC) 50 MG in D5W 250 ML IVPB (CANCER CTR) 250 ML IV SCH; +OXALIPLATIN 160 MG in D5W 250 ML IVPB (CANCER CTR) 250 ML IV SCH; +PALONOSETRON HCL 0.25 MG, DEXAMETHASONE INJECTION 10 MG in NS (IVPB) CANCER CENTER 50 ML IV SCH; +[UNRECOGNIZED DRUG - OTHER] IV SCH
[2020-03-30 09:14] LABS: BASOPHILS # (AUTO) 0.1 10^3/uL (0.0-0.1); BASOPHILS % (AUTO) 1 % (0-10); EOSINOPHILS # (AUTO) 0.2 10^3/uL (0.0-0.3); EOSINOPHILS % (AUTO) 6 % (0-10); HEMATOCRIT 36 % (40-54); HEMOGLOBIN 11.8 G/DL (13.3-17.7); LYMPHOCYTES # (AUTO) 1.4 X 10^3 (1.0-4.0); LYMPHOCYTES % (AUTO) 32 % (12-44); MEAN CORPUSCULAR HEMOGLOBIN 31 PG (25-34); MEAN CORPUSCULAR HGB CONC 33 G/DL (32-36); MEAN CORPUSCULAR VOLUME 96 FL (80-99); MONOCYTES # (AUTO) 0.7 X 10^3 (0.0-1.0); MONOCYTES % (AUTO) 16 % (0-12); NEUTROPHILS # (AUTO) 1.9 X 10^3 (1.8-7.8); NEUTROPHILS % (AUTO) 44 % (42-75); PLATELET COUNT 199 10^3/uL (130-400); RED CELL DISTRIBUTION WIDTH 17.7 % (10.0-14.5); WHITE BLOOD COUNT 4.2 10^3/uL (4.3-11.0)
[2020-03-30 09:41] LABS: ALANINE AMINOTRANSFERASE 13 U/L (0-55); ALBUMIN 3.4 GM/DL (3.2-4.5); ALKALINE PHOSPHATASE 107 U/L (40-136); BILIRUBIN,TOTAL 0.3 MG/DL (0.1-1.0); BUN/CREATININE RATIO 18; CALCIUM 8.2 MG/DL (8.5-10.1); CARBON DIOXIDE 24 MMOL/L (21-32); CHLORIDE 111 MMOL/L (98-107); GFR ESTIMATED > 60; GLUCOSE 94 MG/DL (70-105); MAGNESIUM 1.7 MG/DL (1.6-2.4); POTASSIUM 3.9 MMOL/L (3.6-5.0); SODIUM 141 MMOL/L (135-145); TOTAL PROTEIN 6.2 GM/DL (6.4-8.2)
== END 2020-04-05 | disposition home or self-care (01) ==
LOC: ONC 09:00
PROVIDERS: ATTEND Internal Medicine Hematology & Oncology
DX: Z51.11 Encounter for antineoplastic chemotherapy (principal); C19 Malignant neoplasm of rectosigmoid junction
CPT/HCPCS: 36591; 80048; 80053; 82378; 83735; 85025; 96360; 96367; 96368; 96375; 96411; 96413; 96416; 99213

== ENCOUNTER → 2020-05-18 | Outpatient (CLI) | payer MEDICARE ==
[~2020-05-18] MED LIST changes: -D5W 500 ML IV (CANCER CTR) 500 ML IV SCH; -FLUOROURACIL IV SCH; -FOSAPREPITANT DIMEGLUMINE 150 MG in NS (IVPB) CANCER CENTER ONLY 150 ML IV SCH; -LEUCOVORIN CALCIUM 500 MG, LEUCOVORIN CALCIUM 100 MG in D5W 250 ML IVPB (CANCER CTR) 25... IV SCH; -LEUCOVORIN CALCIUM 600 MG in D5W 250 ML IVPB (CANCER CTR) 250 ML IV SCH; -LEUCOVORIN CALCIUM 700 MG in D5W 250 ML IVPB (CANCER CTR) 250 ML IV SCH; -NS IV 500 ML (CANCER CENTER) 500 ML ONE; -NS IV SCH; -OXALIPLATIN 100 MG, OXALIPLATIN (GENERIC) 50 MG in D5W 250 ML IVPB (CANCER CTR) 250 ML IV SCH; -OXALIPLATIN 160 MG in D5W 250 ML IVPB (CANCER CTR) 250 ML IV SCH; -PALONOSETRON HCL 0.25 MG, DEXAMETHASONE INJECTION 10 MG in NS (IVPB) CANCER CENTER 50 ML IV SCH; -[UNRECOGNIZED DRUG - OTHER] IV SCH
--- NOTE | 2020-05-18 12:54 | Diagnostic Imaging Report ---
INDICATION: Rectal cancer with subsequent treatment strategy and restaging and to assess treatment response. Serum blood glucose level at time of injection is 97 mg/dL. Patient was administered 15.0 mCi F-18 FDG intravenously in left antecubital location and PET imaging was performed from the top of skull to mid thighs. Noncontrast CT was performed for attenuation correction and anatomic correlation. Correlation is made with prior PET/CT study from 10/07/2019. There is symmetric activity throughout the brain. Physiologic activity within the soft tissues of the neck are identified. No mediastinal or hilar hypermetabolism is identified. No pulmonary parenchymal hypermetabolism is identified. There is physiologic activity within the gastrointestinal and genitourinary tracts of abdomen and pelvis. No suspicious hypermetabolism is identified. The conventional CT images are without evidence of a pulmonary infiltrate or lung nodules. No adrenal mass is identified. Postsurgical changes to the midline anterior abdominal wall is noted. There are postsurgical changes at the rectosigmoid junction. No definite abdominal or pelvic mass or fluid collection is seen. IMPRESSION: Unremarkable PET/CT study. No suspicious hypermetabolism is identified. Dictated by: Dictated on workstation # [id number]
== END ==
LOC: RAD 08:42
PROVIDERS: ATTEND Nurse Practitioner Adult Health
DX: Z01.89 Encounter for other specified special examinations (principal); C20 Malignant neoplasm of rectum; C77.2 Secondary and unspecified malignant neoplasm of intra-abdominal lymph nodes
CPT/HCPCS: 78815; A9552

== ENCOUNTER 2020-05-26 10:02 | Outpatient (RCR) | payer MEDICARE ==
[2020-04-06 09:30] LABS: BASOPHILS % (AUTO) 1 % (0-10); EOSINOPHILS # (AUTO) 0.3 10^3/uL (0.0-0.3); EOSINOPHILS % (AUTO) 8 % (0-10); HEMATOCRIT 36 % (40-54); HEMOGLOBIN 11.9 G/DL (13.3-17.7); LYMPHOCYTES # (AUTO) 1.5 X 10^3 (1.0-4.0); LYMPHOCYTES % (AUTO) 38 % (12-44); MEAN CORPUSCULAR HEMOGLOBIN 32 PG (25-34); MEAN CORPUSCULAR HGB CONC 33 G/DL (32-36); MEAN CORPUSCULAR VOLUME 96 FL (80-99); MEAN PLATELET VOLUME 9.9 FL (7.4-10.4); MONOCYTES # (AUTO) 0.7 X 10^3 (0.0-1.0); MONOCYTES % (AUTO) 18 % (0-12); NEUTROPHILS # (AUTO) 1.4 X 10^3 (1.8-7.8); NEUTROPHILS % (AUTO) 35 % (42-75); PLATELET COUNT 190 10^3/uL (130-400); RED CELL DISTRIBUTION WIDTH 16.8 % (10.0-14.5)
[2020-04-06 09:46] LABS: BUN/CREATININE RATIO 17; CALCIUM 8.1 MG/DL (8.5-10.1); CARBON DIOXIDE 25 MMOL/L (21-32); CHLORIDE 108 MMOL/L (98-107); CREATININE SERUM 0.81 MG/DL (0.60-1.30); GFR ESTIMATED > 60; GLUCOSE 98 MG/DL (70-105); POTASSIUM 4.3 MMOL/L (3.6-5.0); SODIUM 138 MMOL/L (135-145)
[2020-04-13 09:10] LABS: BASOPHILS # (AUTO) 0.1 10^3/uL (0.0-0.1); BASOPHILS % (AUTO) 1 % (0-10); EOSINOPHILS # (AUTO) 0.3 10^3/uL (0.0-0.3); EOSINOPHILS % (AUTO) 6 % (0-10); HEMATOCRIT 35 % (40-54); HEMOGLOBIN 11.6 G/DL (13.3-17.7); LYMPHOCYTES # (AUTO) 1.5 X 10^3 (1.0-4.0); LYMPHOCYTES % (AUTO) 31 % (12-44); MEAN CORPUSCULAR HEMOGLOBIN 32 PG (25-34); MEAN CORPUSCULAR HGB CONC 33 G/DL (32-36); MEAN CORPUSCULAR VOLUME 96 FL (80-99); MEAN PLATELET VOLUME 10.3 FL (7.4-10.4); MONOCYTES # (AUTO) 0.7 X 10^3 (0.0-1.0); MONOCYTES % (AUTO) 15 % (0-12); NEUTROPHILS # (AUTO) 2.3 X 10^3 (1.8-7.8); NEUTROPHILS % (AUTO) 47 % (42-75); PLATELET COUNT 162 10^3/uL (130-400); RED CELL DISTRIBUTION WIDTH 17.2 % (10.0-14.5); WHITE BLOOD COUNT 4.8 10^3/uL (4.3-11.0)
[2020-04-13 09:39] LABS: ALANINE AMINOTRANSFERASE 16 U/L (0-55); ALBUMIN 3.2 GM/DL (3.2-4.5); ALKALINE PHOSPHATASE 90 U/L (40-136); BILIRUBIN,TOTAL 0.3 MG/DL (0.1-1.0); BUN/CREATININE RATIO 18; CARBON DIOXIDE 22 MMOL/L (21-32); CHLORIDE 112 MMOL/L (98-107); CREATININE SERUM 0.78 MG/DL (0.60-1.30); GFR ESTIMATED > 60; GLUCOSE 95 MG/DL (70-105); MAGNESIUM 1.8 MG/DL (1.6-2.4); POTASSIUM 3.9 MMOL/L (3.6-5.0); SODIUM 141 MMOL/L (135-145); TOTAL PROTEIN 5.7 GM/DL (6.4-8.2)
[2020-04-20 10:26] LABS: BASOPHILS # (AUTO) 0.1 10^3/uL (0.0-0.1); BASOPHILS % (AUTO) 1 % (0-10); EOSINOPHILS # (AUTO) 0.2 10^3/uL (0.0-0.3); EOSINOPHILS % (AUTO) 6 % (0-10); HEMATOCRIT 36 % (40-54); HEMOGLOBIN 12.2 G/DL (13.3-17.7); LYMPHOCYTES # (AUTO) 1.6 X 10^3 (1.0-4.0); LYMPHOCYTES % (AUTO) 40 % (12-44); MEAN CORPUSCULAR HEMOGLOBIN 32 PG (25-34); MEAN CORPUSCULAR HGB CONC 34 G/DL (32-36); MEAN CORPUSCULAR VOLUME 94 FL (80-99); MEAN PLATELET VOLUME 10.3 FL (7.4-10.4); MONOCYTES # (AUTO) 0.7 X 10^3 (0.0-1.0); MONOCYTES % (AUTO) 16 % (0-12); NEUTROPHILS # (AUTO) 1.5 X 10^3 (1.8-7.8); NEUTROPHILS % (AUTO) 37 % (42-75); PLATELET COUNT 174 10^3/uL (130-400); RED CELL DISTRIBUTION WIDTH 16.9 % (10.0-14.5); WHITE BLOOD COUNT 4.1 10^3/uL (4.3-11.0)
[2020-04-20 10:46] LABS: BUN/CREATININE RATIO 17; CALCIUM 8.2 MG/DL (8.5-10.1); CARBON DIOXIDE 21 MMOL/L (21-32); CHLORIDE 112 MMOL/L (98-107); CREATININE SERUM 0.76 MG/DL (0.60-1.30); GFR ESTIMATED > 60; GLUCOSE 116 MG/DL (70-105); POTASSIUM 3.8 MMOL/L (3.6-5.0); SODIUM 140 MMOL/L (135-145)
[2020-04-27 10:51] LABS: BASOPHILS # (AUTO) 0.1 10^3/uL (0.0-0.1); BASOPHILS % (AUTO) 1 % (0-10); EOSINOPHILS # (AUTO) 0.2 10^3/uL (0.0-0.3); EOSINOPHILS % (AUTO) 5 % (0-10); HEMATOCRIT 37 % (40-54); HEMOGLOBIN 12.4 G/DL (13.3-17.7); LYMPHOCYTES # (AUTO) 1.8 X 10^3 (1.0-4.0); LYMPHOCYTES % (AUTO) 37 % (12-44); MEAN CORPUSCULAR HGB CONC 33 G/DL (32-36); MEAN CORPUSCULAR VOLUME 95 FL (80-99); MEAN PLATELET VOLUME 10.4 FL (7.4-10.4); MONOCYTES # (AUTO) 0.9 X 10^3 (0.0-1.0); MONOCYTES % (AUTO) 19 % (0-12); NEUTROPHILS # (AUTO) 1.9 X 10^3 (1.8-7.8); NEUTROPHILS % (AUTO) 38 % (42-75); PLATELET COUNT 163 10^3/uL (130-400); RED CELL DISTRIBUTION WIDTH 17.8 % (10.0-14.5); WHITE BLOOD COUNT 4.9 10^3/uL (4.3-11.0)
[2020-04-27 10:52] LABS: MEAN CORPUSCULAR HEMOGLOBIN 31 PG (25-34)
[2020-04-27 11:09] LABS: ALANINE AMINOTRANSFERASE 14 U/L (0-55); ALBUMIN 3.5 GM/DL (3.2-4.5); ALKALINE PHOSPHATASE 95 U/L (40-136); BILIRUBIN,TOTAL 0.4 MG/DL (0.1-1.0); BUN/CREATININE RATIO 19; CALCIUM 8.5 MG/DL (8.5-10.1); CARBON DIOXIDE 24 MMOL/L (21-32); CHLORIDE 111 MMOL/L (98-107); CREATININE SERUM 0.88 MG/DL (0.60-1.30); GFR ESTIMATED > 60; GLUCOSE 85 MG/DL (70-105); MAGNESIUM 1.8 MG/DL (1.6-2.4); SODIUM 140 MMOL/L (135-145); TOTAL PROTEIN 6.2 GM/DL (6.4-8.2)
[2020-05-04 09:49] LABS: BASOPHILS % (AUTO) 1 % (0-10); EOSINOPHILS # (AUTO) 0.2 10^3/uL (0.0-0.3); EOSINOPHILS % (AUTO) 5 % (0-10); HEMATOCRIT 37 % (40-54); HEMOGLOBIN 12.5 G/DL (13.3-17.7); LYMPHOCYTES # (AUTO) 1.6 X 10^3 (1.0-4.0); LYMPHOCYTES % (AUTO) 41 % (12-44); MEAN CORPUSCULAR HEMOGLOBIN 32 PG (25-34); MEAN CORPUSCULAR HGB CONC 34 G/DL (32-36); MEAN CORPUSCULAR VOLUME 95 FL (80-99); MONOCYTES # (AUTO) 0.6 X 10^3 (0.0-1.0); MONOCYTES % (AUTO) 15 % (0-12); NEUTROPHILS # (AUTO) 1.5 X 10^3 (1.8-7.8); NEUTROPHILS % (AUTO) 39 % (42-75); PLATELET COUNT 153 10^3/uL (130-400); RED CELL DISTRIBUTION WIDTH 16.8 % (10.0-14.5); WHITE BLOOD COUNT 3.9 10^3/uL (4.3-11.0)
[2020-05-04 10:02] LABS: BUN/CREATININE RATIO 22; CALCIUM 8.4 MG/DL (8.5-10.1); CARBON DIOXIDE 22 MMOL/L (21-32); CHLORIDE 111 MMOL/L (98-107); CREATININE SERUM 0.85 MG/DL (0.60-1.30); GFR ESTIMATED > 60; GLUCOSE 83 MG/DL (70-105); POTASSIUM 4.7 MMOL/L (3.6-5.0); SODIUM 141 MMOL/L (135-145)
[2020-05-11 09:00] LABS: BASOPHILS # (AUTO) 0.1 10^3/uL (0.0-0.1); BASOPHILS % (AUTO) 1 % (0-10); EOSINOPHILS # (AUTO) 0.3 10^3/uL (0.0-0.3); EOSINOPHILS % (AUTO) 6 % (0-10); HEMATOCRIT 37 % (40-54); HEMOGLOBIN 12.4 G/DL (13.3-17.7); LYMPHOCYTES # (AUTO) 1.4 X 10^3 (1.0-4.0); LYMPHOCYTES % (AUTO) 32 % (12-44); MEAN CORPUSCULAR HEMOGLOBIN 32 PG (25-34); MEAN CORPUSCULAR HGB CONC 33 G/DL (32-36); MEAN CORPUSCULAR VOLUME 95 FL (80-99); MEAN PLATELET VOLUME 9.8 FL (7.4-10.4); MONOCYTES # (AUTO) 0.9 X 10^3 (0.0-1.0); MONOCYTES % (AUTO) 20 % (0-12); NEUTROPHILS # (AUTO) 1.8 X 10^3 (1.8-7.8); NEUTROPHILS % (AUTO) 41 % (42-75); PLATELET COUNT 146 10^3/uL (130-400); RED CELL DISTRIBUTION WIDTH 17.7 % (10.0-14.5); WHITE BLOOD COUNT 4.3 10^3/uL (4.3-11.0)
[2020-05-11 09:17] LABS: BUN/CREATININE RATIO 22; CALCIUM 8.2 MG/DL (8.5-10.1); CARBON DIOXIDE 23 MMOL/L (21-32); CHLORIDE 110 MMOL/L (98-107); CREATININE SERUM 0.86 MG/DL (0.60-1.30); GFR ESTIMATED > 60; GLUCOSE 98 MG/DL (70-105); POTASSIUM 4.2 MMOL/L (3.6-5.0); SODIUM 141 MMOL/L (135-145)
[2020-05-18 08:45] LABS: BASOPHILS # (AUTO) 0.1 10^3/uL (0.0-0.1); BASOPHILS % (AUTO) 2 % (0-10); EOSINOPHILS # (AUTO) 0.3 10^3/uL (0.0-0.3); EOSINOPHILS % (AUTO) 7 % (0-10); HEMATOCRIT 38 % (40-54); HEMOGLOBIN 12.6 G/DL (13.3-17.7); LYMPHOCYTES # (AUTO) 1.9 X 10^3 (1.0-4.0); LYMPHOCYTES % (AUTO) 46 % (12-44); MEAN CORPUSCULAR HEMOGLOBIN 32 PG (25-34); MEAN CORPUSCULAR HGB CONC 33 G/DL (32-36); MEAN CORPUSCULAR VOLUME 95 FL (80-99); MONOCYTES # (AUTO) 0.7 X 10^3 (0.0-1.0); MONOCYTES % (AUTO) 16 % (0-12); NEUTROPHILS # (AUTO) 1.2 X 10^3 (1.8-7.8); NEUTROPHILS % (AUTO) 30 % (42-75); PLATELET COUNT 171 10^3/uL (130-400); RED CELL DISTRIBUTION WIDTH 17.2 % (10.0-14.5); WHITE BLOOD COUNT 4.1 10^3/uL (4.3-11.0)
[2020-05-18 09:01] LABS: BUN/CREATININE RATIO 25; CALCIUM 8.6 MG/DL (8.5-10.1); CARBON DIOXIDE 22 MMOL/L (21-32); CHLORIDE 110 MMOL/L (98-107); CREATININE SERUM 0.84 MG/DL (0.60-1.30); GFR ESTIMATED > 60; GLUCOSE 94 MG/DL (70-105); POTASSIUM 4.3 MMOL/L (3.6-5.0); SODIUM 140 MMOL/L (135-145)
[2020-05-25 09:30] LABS: BASOPHILS # (AUTO) 0.1 10^3/uL (0.0-0.1); BASOPHILS % (AUTO) 2 % (0-10); EOSINOPHILS # (AUTO) 0.3 10^3/uL (0.0-0.3); EOSINOPHILS % (AUTO) 8 % (0-10); HEMATOCRIT 37 % (40-54); HEMOGLOBIN 12.4 G/DL (13.3-17.7); LYMPHOCYTES # (AUTO) 1.3 X 10^3 (1.0-4.0); LYMPHOCYTES % (AUTO) 32 % (12-44); MEAN CORPUSCULAR HEMOGLOBIN 32 PG (25-34); MEAN CORPUSCULAR HGB CONC 33 G/DL (32-36); MEAN CORPUSCULAR VOLUME 96 FL (80-99); MEAN PLATELET VOLUME 10.3 FL (7.4-10.4); MONOCYTES # (AUTO) 0.6 X 10^3 (0.0-1.0); MONOCYTES % (AUTO) 15 % (0-12); NEUTROPHILS # (AUTO) 1.7 X 10^3 (1.8-7.8); NEUTROPHILS % (AUTO) 43 % (42-75); PLATELET COUNT 197 10^3/uL (130-400); RED CELL DISTRIBUTION WIDTH 17.2 % (10.0-14.5)
[2020-05-25 09:55] LABS: ALANINE AMINOTRANSFERASE 17 U/L (0-55); ALBUMIN 3.3 GM/DL (3.2-4.5); ALKALINE PHOSPHATASE 113 U/L (40-136); BILIRUBIN,TOTAL 0.4 MG/DL (0.1-1.0); BUN/CREATININE RATIO 15; CALCIUM 8.4 MG/DL (8.5-10.1); CARBON DIOXIDE 24 MMOL/L (21-32); CHLORIDE 113 MMOL/L (98-107); CREATININE SERUM 0.89 MG/DL (0.60-1.30); GFR ESTIMATED > 60; GLUCOSE 109 MG/DL (70-105); MAGNESIUM 1.7 MG/DL (1.6-2.4); POTASSIUM 4.3 MMOL/L (3.6-5.0); SODIUM 143 MMOL/L (135-145); TOTAL PROTEIN 5.9 GM/DL (6.4-8.2)
[~2020-05-26 10:02] MED LIST changes: +D5W 500 ML IV (CANCER CTR) 500 ML IV SCH; +FOSAPREPITANT (CANCER CENTER) 150 MG in NS (IVPB) CANCER CENTER ONLY 150 ML IV SCH; +LEUCOVORIN CALCIUM 500 MG, LEUCOVORIN CALCIUM 100 MG in D5W 250 ML IVPB (CANCER CTR) 25... IV SCH; +OXALIPLATIN 100 MG, OXALIPLATIN (GENERIC) 50 MG in D5W 250 ML IVPB (CANCER CTR) 250 ML IV SCH
== END 2020-07-05 | disposition home or self-care (01) ==
LOC: ONC 10:02
PROVIDERS: ATTEND Internal Medicine Hematology & Oncology
DX: Z51.11 Encounter for antineoplastic chemotherapy (principal); C19 Malignant neoplasm of rectosigmoid junction; Z45.2 Encounter for adjustment and management of vascular access device
CPT/HCPCS: 36591; 80048; 80053; 82378; 83735; 85025; 96367; 96368; 96375; 96413; 96523; 99213

== ENCOUNTER 2020-06-10 05:42 | Outpatient (RCR) | payer MEDICARE ==
[~2020-06-10] VITALS: Ht 180.3 cm; Wt 72.7 kg
[~2020-06-10 05:42] MED LIST changes: -D5W 500 ML IV (CANCER CTR) 500 ML IV SCH; -FOSAPREPITANT (CANCER CENTER) 150 MG in NS (IVPB) CANCER CENTER ONLY 150 ML IV SCH; -LEUCOVORIN CALCIUM 500 MG, LEUCOVORIN CALCIUM 100 MG in D5W 250 ML IVPB (CANCER CTR) 25... IV SCH; -OXALIPLATIN 100 MG, OXALIPLATIN (GENERIC) 50 MG in D5W 250 ML IVPB (CANCER CTR) 250 ML IV SCH
== END 2020-06-10 14:17 | disposition home or self-care (01) ==
LOC: PREOP 05:42
PROVIDERS: ATTEND Internal Medicine
DX: Z01.818 Encounter for other preprocedural examination (principal)

== ENCOUNTER → 2020-07-06 | Outpatient (CLI) | payer MEDICARE | LOC: CARD 10:44 | PROVIDERS: ATTEND Internal Medicine | DX: I49.3 Ventricular premature depolarization (principal) | CPT/HCPCS: 93005 ==

== ENCOUNTER → 2020-07-15 | Outpatient (CLI) | payer MEDICARE | LOC: CARD 14:07 | PROVIDERS: ATTEND Internal Medicine | DX: I08.0 Rheumatic disorders of both mitral and aortic valves (principal); I48.19 Other persistent atrial fibrillation | CPT/HCPCS: 93306 ==

== ENCOUNTER 2020-08-24 10:06 | Outpatient (RCR) | payer MEDICARE ==
[2020-08-24 10:36] LABS: BASOPHILS # (AUTO) 0.1 10^3/uL (0.0-0.1); BASOPHILS % (AUTO) 2 % (0-10); EOSINOPHILS # (AUTO) 0.5 10^3/uL (0.0-0.3); EOSINOPHILS % (AUTO) 10 % (0-10); HEMATOCRIT 37 % (40-54); HEMOGLOBIN 12.5 g/dL (13.3-17.7); LYMPHOCYTES # (AUTO) 1.7 10^3/uL (1.0-4.0); LYMPHOCYTES % (AUTO) 38 % (12-44); MEAN CORPUSCULAR HEMOGLOBIN 31 pg (25-34); MEAN CORPUSCULAR HGB CONC 34 g/dL (32-36); MEAN CORPUSCULAR VOLUME 94 fL (80-99); MEAN PLATELET VOLUME 10.7 fL (9.0-12.2); MONOCYTES # (AUTO) 0.6 10^3/uL (0.0-1.0); MONOCYTES % (AUTO) 12 % (0-12); NEUTROPHILS # (AUTO) 1.7 10^3/uL (1.8-7.8); NEUTROPHILS % (AUTO) 38 % (42-75); PLATELET COUNT 190 10^3/uL (130-400); WHITE BLOOD COUNT 4.5 10^3/uL (4.3-11.0)
[2020-08-24 10:54] LABS: ALANINE AMINOTRANSFERASE 18 U/L (0-55); ALBUMIN 3.6 GM/DL (3.2-4.5); ALKALINE PHOSPHATASE 86 U/L (40-136); BILIRUBIN,TOTAL 0.5 MG/DL (0.1-1.0); BUN/CREATININE RATIO 16; CALCIUM 8.4 MG/DL (8.5-10.1); CARBON DIOXIDE 25 MMOL/L (21-32); CHLORIDE 109 MMOL/L (98-107); GFR ESTIMATED > 60; GLUCOSE 100 MG/DL (70-105); POTASSIUM 3.9 MMOL/L (3.6-5.0); SODIUM 141 MMOL/L (135-145); TOTAL PROTEIN 6.3 GM/DL (6.4-8.2)
== END 2020-11-12 15:13 | disposition home or self-care (01) ==
LOC: ONC 10:06
PROVIDERS: ATTEND Internal Medicine Hematology & Oncology
DX: C19 Malignant neoplasm of rectosigmoid junction (principal); C77.2 Secondary and unspecified malignant neoplasm of intra-abdominal lymph nodes; Z92.21 Personal history of antineoplastic chemotherapy
CPT/HCPCS: 80053; 82378; 85025; G0463; 36591

== ENCOUNTER → 2020-12-03 | Outpatient (CLI) | payer MEDICARE ==
[~2020-12-03] MED LIST changes: +BARIUM SUSPENSION 2.1% (VANILLA SILQ) 450 ML PO ONE; +CATHETER FLUSH 10 ML SYR IV PRN; +HOLD METFORMIN - RECEIVED CONTRAST 20 ML VIAL IV SCH; +IOHEXOL 350 MG/ML 100 ML (OMNIPAQUE 350) VIAL IV ONE; +NS 100 ML (IVPB) BAG IV ONE
--- NOTE | 2020-12-03 10:13 | Diagnostic Imaging Report ---
EXAMINATION: CT Abdomen Pelvis with and without intravenous contrast. TECHNIQUE: Precontrast acquisitions were acquired through the abdomen and pelvis. Multiple contiguous axial images were obtained through the abdomen and pelvis after the administration of intravenous contrast. All CT scans use one or more of the following dose optimizing techniques: automated exposure control, MA and/or KvP adjustment based on a patient size and exam type, or iterative reconstruction. HISTORY: Colon cancer follow-up. COMPARISON: PET/CT from 05/18/2020. FINDINGS: Lung bases: The lung bases are clear. Solid organs: The liver is normal without focal lesion. There is no biliary ductal dilation. The gallbladder is nonvisualized and may be surgically absent. Pancreas is normal. The spleen may be surgically absent. There are multiple likely splenules within the left upper quadrant. Adrenal glands are normal. The kidneys are normal without hydronephrosis. Bowel: The stomach and small bowel are normal without obstruction. Surgical changes from distal colon resection. The appendix is normal. Peritoneum: There is no intraperitoneal free fluid or free air. No suspicious lymphadenopathy. Vasculature: Calcification of the aorta without aneurysm. Musculoskeletal: No suspicious osseous lesion or compression fracture. Surgical changes of the anterior abdominal wall. Pelvis: The prostate gland is normal. The urinary bladder is normal. IMPRESSION: 1. No findings of metastatic disease within the abdomen or pelvis. Dictated by: Dictated on workstation # [id number]
== END ==
LOC: RAD 09:26
PROVIDERS: ATTEND Internal Medicine Hematology & Oncology
DX: C20 Malignant neoplasm of rectum (principal); Z90.49 Acquired absence of other specified parts of digestive tract
CPT/HCPCS: 74178

== ENCOUNTER 2021-02-17 08:30 | Outpatient (RCR) | payer MEDICARE ==
[2020-11-26 09:26] LABS: BASOPHILS # (AUTO) 0.1 10^3/uL (0.0-0.1); BASOPHILS % (AUTO) 1 % (0-10); EOSINOPHILS # (AUTO) 0.6 10^3/uL (0.0-0.3); EOSINOPHILS % (AUTO) 10 % (0-10); HEMATOCRIT 41 % (40-54); LYMPHOCYTES % (AUTO) 35 % (12-44); MEAN CORPUSCULAR HEMOGLOBIN 31 pg (25-34); MEAN CORPUSCULAR HGB CONC 34 g/dL (32-36); MEAN CORPUSCULAR VOLUME 92 fL (80-99); MEAN PLATELET VOLUME 10.5 fL (9.0-12.2); MONOCYTES # (AUTO) 0.4 10^3/uL (0.0-1.0); MONOCYTES % (AUTO) 8 % (0-12); NEUTROPHILS # (AUTO) 2.6 10^3/uL (1.8-7.8); NEUTROPHILS % (AUTO) 46 % (42-75); PLATELET COUNT 183 10^3/uL (130-400); WHITE BLOOD COUNT 5.6 10^3/uL (4.3-11.0)
[2020-11-26 09:47] LABS: ALBUMIN 3.8 GM/DL (3.2-4.5); BILIRUBIN,TOTAL 0.7 MG/DL (0.1-1.0); CALCIUM 8.8 MG/DL (8.5-10.1); CREATININE SERUM 1.18 MG/DL (0.60-1.30); POTASSIUM 3.8 MMOL/L (3.6-5.0); TOTAL PROTEIN 6.8 GM/DL (6.4-8.2)
[~2021-02-17 08:30] MED LIST changes: -BARIUM SUSPENSION 2.1% (VANILLA SILQ) 450 ML PO ONE; -CATHETER FLUSH 10 ML SYR IV PRN; -HOLD METFORMIN - RECEIVED CONTRAST 20 ML VIAL IV SCH; -IOHEXOL 350 MG/ML 100 ML (OMNIPAQUE 350) VIAL IV ONE; -NS 100 ML (IVPB) BAG IV ONE
[2021-02-17 08:57] LABS: BASOPHILS # (AUTO) 0.1 10^3/uL (0.0-0.1); BASOPHILS % (AUTO) 2 % (0-10); EOSINOPHILS # (AUTO) 0.4 10^3/uL (0.0-0.3); EOSINOPHILS % (AUTO) 9 % (0-10); HEMATOCRIT 40 % (40-54); HEMOGLOBIN 13.3 g/dL (13.3-17.7); LYMPHOCYTES # (AUTO) 1.9 10^3/uL (1.0-4.0); LYMPHOCYTES % (AUTO) 42 % (12-44); MEAN CORPUSCULAR HEMOGLOBIN 32 pg (25-34); MEAN CORPUSCULAR HGB CONC 33 g/dL (32-36); MEAN CORPUSCULAR VOLUME 95 fL (80-99); MEAN PLATELET VOLUME 10.6 fL (9.0-12.2); MONOCYTES # (AUTO) 0.4 10^3/uL (0.0-1.0); MONOCYTES % (AUTO) 10 % (0-12); NEUTROPHILS # (AUTO) 1.7 10^3/uL (1.8-7.8); NEUTROPHILS % (AUTO) 38 % (42-75); PLATELET COUNT 189 10^3/uL (130-400); WHITE BLOOD COUNT 4.5 10^3/uL (4.3-11.0)
[2021-02-17 09:20] LABS: ALANINE AMINOTRANSFERASE 21 U/L (0-55); ALBUMIN 3.7 GM/DL (3.2-4.5); ALKALINE PHOSPHATASE 97 U/L (40-136); BILIRUBIN,TOTAL 0.4 MG/DL (0.1-1.0); BUN/CREATININE RATIO 16; CALCIUM 8.3 MG/DL (8.5-10.1); CARBON DIOXIDE 21 MMOL/L (21-32); CHLORIDE 109 MMOL/L (98-107); CREATININE SERUM 0.97 MG/DL (0.60-1.30); GFR ESTIMATED > 60; GLUCOSE 143 MG/DL (70-105); SODIUM 140 MMOL/L (135-145); TOTAL PROTEIN 6.5 GM/DL (6.4-8.2)
== END 2021-02-24 | disposition home or self-care (01) ==
LOC: ONC 08:30
PROVIDERS: ATTEND Internal Medicine Hematology & Oncology
DX: C20 Malignant neoplasm of rectum (principal); C19 Malignant neoplasm of rectosigmoid junction; C77.2 Secondary and unspecified malignant neoplasm of intra-abdominal lymph nodes; Z92.21 Personal history of antineoplastic chemotherapy; G60.9 Hereditary and idiopathic neuropathy, unspecified
CPT/HCPCS: 80053; 82378; 85025; G0463; 36591; 99213

== ENCOUNTER 2021-05-12 09:32 | Outpatient (RCR) | payer MEDICARE ==
[2021-05-12 09:47] LABS: BASOPHILS # (AUTO) 0.1 10^3/uL (0.0-0.1); BASOPHILS % (AUTO) 2 % (0-10); EOSINOPHILS # (AUTO) 0.3 10^3/uL (0.0-0.3); EOSINOPHILS % (AUTO) 6 % (0-10); HEMATOCRIT 39 % (40-54); HEMOGLOBIN 13.3 g/dL (13.3-17.7); LYMPHOCYTES # (AUTO) 1.8 10^3/uL (1.0-4.0); LYMPHOCYTES % (AUTO) 43 % (12-44); MEAN CORPUSCULAR HEMOGLOBIN 31 pg (25-34); MEAN CORPUSCULAR HGB CONC 34 g/dL (32-36); MEAN CORPUSCULAR VOLUME 92 fL (80-99); MEAN PLATELET VOLUME 10.4 fL (9.0-12.2); MONOCYTES # (AUTO) 0.5 10^3/uL (0.0-1.0); MONOCYTES % (AUTO) 12 % (0-12); NEUTROPHILS # (AUTO) 1.5 10^3/uL (1.8-7.8); NEUTROPHILS % (AUTO) 37 % (42-75); PLATELET COUNT 189 10^3/uL (130-400); WHITE BLOOD COUNT 4.1 10^3/uL (4.3-11.0)
[2021-05-12 10:08] LABS: ALANINE AMINOTRANSFERASE 20 U/L (0-55); ALBUMIN 3.6 GM/DL (3.2-4.5); ALKALINE PHOSPHATASE 72 U/L (40-136); BILIRUBIN,TOTAL 0.6 MG/DL (0.1-1.0); BUN/CREATININE RATIO 15; CALCIUM 8.6 MG/DL (8.5-10.1); CARBON DIOXIDE 25 MMOL/L (21-32); CHLORIDE 113 MMOL/L (98-107); CREATININE SERUM 0.97 MG/DL (0.60-1.30); GFR ESTIMATED > 60; GLUCOSE 79 MG/DL (70-105); POTASSIUM 3.9 MMOL/L (3.6-5.0); SODIUM 142 MMOL/L (135-145); TOTAL PROTEIN 6.2 GM/DL (6.4-8.2)
== END 2021-08-10 | disposition home or self-care (01) ==
LOC: ONC 09:32
PROVIDERS: ATTEND Internal Medicine Hematology & Oncology
DX: C20 Malignant neoplasm of rectum (principal); C19 Malignant neoplasm of rectosigmoid junction; C77.2 Secondary and unspecified malignant neoplasm of intra-abdominal lymph nodes; G60.9 Hereditary and idiopathic neuropathy, unspecified; Z92.21 Personal history of antineoplastic chemotherapy; Z92.3 Personal history of irradiation
CPT/HCPCS: 80053; 82378; 85025; G0463; 36591

== ENCOUNTER → 2021-08-22 | Outpatient (CLI) | payer MEDICARE ==
[~2021-08-22] MED LIST changes: +BARIUM SUSPENSION 2.1% (VANILLA SILQ) 450 ML PO ONE; +CATHETER FLUSH 10 ML SYR IV PRN; +HOLD METFORMIN - RECEIVED CONTRAST 20 ML VIAL IV SCH; +IOHEXOL 350 MG/ML 100 ML (OMNIPAQUE 350) VIAL IV ONE; +NS 100 ML (IVPB) BAG IV ONE
--- NOTE | 2021-08-22 11:43 | Diagnostic Imaging Report ---
PROCEDURE: CT chest with contrast, CT abdomen and pelvis with and without contrast. TECHNIQUE: Pre and post intravenous contrast axial imaging of the abdomen and pelvis and post contrast axial imaging of the chest were performed. Auto Exposure Controls were utilized during the CT exam to meet ALARA standards for radiation dose reduction. INDICATION: History of rectal cancer. Patient had surgery and therapy. Comparison with 12/03/2020 CT abdomen and pelvis: FINDINGS: CT CHEST: shows good opacification of the aorta and pulmonary arteries. There is rather dense calcification of the coronary arteries. The lungs are well aerated and clear. There is no mediastinal or hilar adenopathy of pathologic size. No pleural effusions or pericardial effusion. There are some scattered axillary lymph nodes though these are symmetrical and do not appear to be pathologic. Port-A-Cath on the right in good position. The thoracic spine shows good alignment with moderate degenerative change. No blastic or lytic bony lesion. CT ABDOMEN AND PELVIS: Good opacification of the aorta and abdominal vessels and organs. Vessels appear normal. There are no liver lesion. Gallbladder is absent. Bile ducts are not dilated. Pancreas is normal. The spleen is small and rounded and is not changed. The adrenal glands are not enlarged. Kidneys show symmetrical enhancement without evidence of mass or obstruction. No calculi. Oral contrast in the stomach and small bowel appears normal. Appendix is normal. The remaining colon shows normal stool and gas pattern throughout. No colonic masses are demonstrated. The mesorectal fat planes appear normal. No pelvic adenopathy of pathologic size. Bladder appears normal. Prostate is mildly enlarged. There are small bilateral inguinal hernias containing abdominal fat. No bony lesions have developed. No free air or free fluid. IMPRESSION: 1. Postsurgical residue with no findings seen to suggest metastatic or recurrent malignancy. 2. Small bilateral inguinal hernias containing abdominal fat. 3. Enlarged prostate. 4. Overall appearance has not changed significantly when compared with previous exam. Dictated by: Dictated on workstation # [id number]
== END ==
LOC: RAD 09:45
PROVIDERS: ATTEND Internal Medicine Hematology & Oncology
DX: K40.20 Bilateral inguinal hernia, without obstruction or gangrene, not specified as recurrent (principal); N40.0 Benign prostatic hyperplasia without lower urinary tract symptoms; C20 Malignant neoplasm of rectum; Z98.890 Other specified postprocedural states
CPT/HCPCS: 71260; 74178

== ENCOUNTER 2021-08-25 09:17 | Outpatient (RCR) | payer MEDICARE ==
[2021-08-22 08:54] LABS: BASOPHILS # (AUTO) 0.1 10^3/uL (0.0-0.1); BASOPHILS % (AUTO) 2 % (0-10); EOSINOPHILS # (AUTO) 0.3 10^3/uL (0.0-0.3); EOSINOPHILS % (AUTO) 7 % (0-10); HEMATOCRIT 41 % (40-54); HEMOGLOBIN 13.9 g/dL (13.3-17.7); LYMPHOCYTES % (AUTO) 43 % (12-44); MEAN CORPUSCULAR HEMOGLOBIN 32 pg (25-34); MEAN CORPUSCULAR HGB CONC 34 g/dL (32-36); MEAN CORPUSCULAR VOLUME 93 fL (80-99); MEAN PLATELET VOLUME 10.2 fL (9.0-12.2); MONOCYTES # (AUTO) 0.5 10^3/uL (0.0-1.0); MONOCYTES % (AUTO) 10 % (0-12); NEUTROPHILS # (AUTO) 1.7 10^3/uL (1.8-7.8); NEUTROPHILS % (AUTO) 37 % (42-75); PLATELET COUNT 175 10^3/uL (130-400); WHITE BLOOD COUNT 4.6 10^3/uL (4.3-11.0)
[2021-08-22 09:22] LABS: ALBUMIN 3.9 GM/DL (3.2-4.5); BILIRUBIN,TOTAL 1.1 MG/DL (0.1-1.0); CALCIUM 8.9 MG/DL (8.5-10.1); CREATININE SERUM 0.88 MG/DL (0.60-1.30); TOTAL PROTEIN 6.8 GM/DL (6.4-8.2)
[~2021-08-25 09:17] MED LIST changes: -BARIUM SUSPENSION 2.1% (VANILLA SILQ) 450 ML PO ONE; -CATHETER FLUSH 10 ML SYR IV PRN; -HOLD METFORMIN - RECEIVED CONTRAST 20 ML VIAL IV SCH; -IOHEXOL 350 MG/ML 100 ML (OMNIPAQUE 350) VIAL IV ONE; -NS 100 ML (IVPB) BAG IV ONE
== END 2021-11-04 | disposition home or self-care (01) ==
LOC: ONC 09:17
PROVIDERS: ATTEND Internal Medicine Hematology & Oncology
DX: Z45.2 Encounter for adjustment and management of vascular access device (principal); C20 Malignant neoplasm of rectum; C19 Malignant neoplasm of rectosigmoid junction; C77.2 Secondary and unspecified malignant neoplasm of intra-abdominal lymph nodes; Z92.21 Personal history of antineoplastic chemotherapy; Z92.3 Personal history of irradiation
CPT/HCPCS: 36591; 80053; 82378; 85025; 99213

== ENCOUNTER 2021-09-07 05:33 | Outpatient (CLI) | payer MEDICARE ==
[~2021-09-07] VITALS: Ht 180.3 cm; Wt 73.1 kg
== END 2021-09-07 15:46 | disposition home or self-care (01) ==
LOC: PREOP 05:33
PROVIDERS: ATTEND Surgery
DX: Z01.818 Encounter for other preprocedural examination (principal)

== ENCOUNTER 2021-09-14 09:26 | Day surgery (SDC) | payer MEDICARE ==
[2021-09-14] VITALS (8 sets, daily range): BP systolic 104–155; BP diastolic 64–88
[~2021-09-14] VITALS: Ht 180 cm; Wt 73.1 kg
[2021-09-14] MEDS ORDERED: ceFAZolin INJECTION 1,000 MG ONE (09:55)
[2021-09-14] MEDS ORDERED: WATER (STERILE) FOR INJECTION 10 ML ONE (09:56)
[2021-09-14] MEDS ORDERED: LACTATED RINGERS 1,000 ML IV PRN (10:00)
[2021-09-14] MEDS ORDERED: ceFAZolin INJECTION 1,000 MG in WATER (STERILE) FOR INJECTION 10 ML IV ONE (10:00)
--- NOTE | 2021-09-14 10:24 | Progress Note-Pre Operative ---
Pre-Operative Progress Note H&P Reviewed The H&P was reviewed, patient examined and no changes noted. Time Seen by Provider: 10:22 Date H&P Reviewed: Sep 14, 2021 Time H&P Reviewed: 10:22 Pre-Operative Diagnosis: Hx of rectal CA, patito-cath STARR PAGAN DO Sep 14, 2021 10:24
[2021-09-14] MEDS ORDERED: LIDOCAINE/EPI 1%-1:100,000 (XYLOCAINE) 20ML ONE (11:42)
[2021-09-14] MEDS ORDERED: MIDAZOLAM 2 MG/2 ML (VERSED) VIAL ONE (12:18)
[2021-09-14] MEDS ORDERED: PROPOFOL INJECTION 50 ML IV ONE (12:18)
[2021-09-14] MEDS ORDERED: ONDANSETRON 4 MG/2 ML (SDV) Z0FRAN ONE (12:29)
--- NOTE | 2021-09-14 12:43 | Progress Note-Post Operative ---
Post-Operative Progess Note Surgeon (s)/Narrow Fabric Loom Fixer (s) Surgeon STARR PAGAN DO N[employer]ric Loom Fixer: JLUIS Jordan Pre-Operative Diagnosis Hx of rectal CA, patito-cath Post-Operative Diagnosis same Procedure & Operative Findings Date of Procedure 09/14/21 Procedure Performed/Findings PROCEDURE: Removal of port COMPLICATIONS: None. INDICATIONS: The patient is a 76 year-old male who had a port previously placed. Patient is ok to have port removed. The patient was explained risk and benefits of the procedure and wished to proceed with procedure. Consent was signed on the chart. PROCEDURE: The patient was taken to the operating suite and was prepped and draped in sterile fashion. A surgical pause was performed. Local anesthetic was infiltrated to the area around the port. A number 11 blade scalpel was used to make an incision directly over previous incision. Cautery was used to dissect down to the port which was then grasped and then dissected around. The catheter was removed in its entirety. The port was then able to be dissected out of the pocket and elevated. The wound was then irrigated with copious amounts of irrigation. Hemostasis had been achieved. The subcutaneous tissues were then reapproximated using 3-0 Vicryl. Skin was then closed using 4-0 Vicryl 3 subcuticular stitches. The area was then washed and dried and Skin Affix placed over the incision. The patient tolerated the procedure well without complication and was taken to recovery room in stable condition. Anesthesia Type IV Sedation by OIL WELL PERFORATOR OPERATOR Estimated Blood Loss Estimated blood loss (mL): scant Specimens/Packing Specimens Removed port STARR PAGAN DO Sep 14, 2021 12:43
--- NOTE | 2021-09-14 12:44 | Discharge Inst-Surgical ---
Discharge Inst-Surgical Depart Medication/Instructions New, Converted or Re-Newed RX: Other (use home meds) Patient Instructions Follow up Appt: Make appointment for 1 week. [phone] Instructions: No lifting greater than 20 pounds. No strenuous activity. May shower in 24 hours, no tub bath or soaking. Use incentive spirometer at home as directed. No Smoking Skin/Wound Care: May remove bandages in am. You need to leave the Dermabond on incision it will fall off on it's own. Symptoms to Report: Appetite Changes, Extremity Discoloration, Numbness/Tingling, Swelling Increased, Bleeding Excessive, Eyesight Changes, Pain Increased, Urine Color Change, Constipation(Persistent), Fever over 101 degree F, Pain/Pressure in chest, Urinating Difficulty, Cough Up/Vomit Blood, Heart Beat Irreg/Pounding, Pain/Pressure in jaw, Cramps in feet or legs, Lightheadedness, Pain/Pressure in shoulder, Diarrhea(Persistent), Memory Changes Suddenly, Questions/Concerns, Weight gain consecutive days, Dizziness/Fainting, Nausea/Vomiting, Shortness of Breath, Weight gain over 2 pounds If questions or concerns contact your physician Or seek help at emergency department. Activity Activity as Tolerated: Yes Activity Instructions: Avoid Stress to Incision Driving Instructions: You May Drive Diet Discharge Diet: No Restrictions Diet After 24 Hours: Clear Liquid if Nauseous If Any Problems/Questions/Issu: Contact Your Physician, Go to Emergency Room Skin/Wound Care Infection Signs and Symptoms: Increased Redness, Foul Odor of Wound, Increased Drainage, Skin Itchy or Has a Rash, Increased Swelling, Temperature Above 101 F Bathing Instructions: Shower Stitches/[place]/Dermabond Dis: Dermabond Ice Pack: Ice On and Off Site STARR PAGAN DO Sep 14, 2021 12:44
--- NOTE | 2021-09-14 12:52 | Anesthesia-General Post-Op ---
MAC Patient Condition Mental Status/LOC: Same as Preop Cardiovascular: Satisfactory Nausea/Vomiting: Absent Respiratory: Satisfactory Pain: Controlled Complications: Absent Post Op Complications Complications None Follow Up Care/Instructions Patient Instructions None needed. Anesthesiology Discharge Order Discharge Order Patient is doing well, no complaints, stable vital signs, no apparent adverse anesthesia problems. No complications reported per nursing. CAMERON CHOUDHARY CRNA Sep 14, 2021 12:52
[2021-09-14] MEDS ORDERED: fentaNYL INJ 100 MCG/2 ML AMP IVP ONE (13:00)
[2021-09-14] MEDS ORDERED: morphine INJ 10 MG/ML 1ML (SYR OR VIAL) IVP ONE (13:00)
[2021-09-14] MEDS ORDERED: MEPERIDINE (DEMEROL) INJ 50 MG/ML IVP ONE (13:00)
[2021-09-14] MEDS ORDERED: ONDANSETRON 4 MG/2 ML (SDV) Z0FRAN IVP PRN (13:00)
== END 2021-09-14 14:10 | disposition home or self-care (01) ==
LOC: SDC 09:26
PROVIDERS: ATTEND Surgery
DX: Z45.2 Encounter for adjustment and management of vascular access device (principal); Z85.048 Personal history of other malignant neoplasm of rectum, rectosigmoid junction, and anus; G62.9 Polyneuropathy, unspecified; Z92.21 Personal history of antineoplastic chemotherapy; Z11.2 Encounter for screening for other bacterial diseases
CPT/HCPCS: 87081